=== PATIENT | female | born 1965 | race Caucasian/White ===

== ENCOUNTER 2020-04-17 15:52 | Inpatient (IN) | payer BC, MEDICAID ==
[~2020-04-17] VITALS: Ht 167.6 cm; Wt 110.0 kg
[~2020-04-17 15:52] MED LIST: ATOR20TA PO; DICL75TA5 PO; ESCI5TAB PO; INSU100I31 SQ; LISI40TA4 PO; METF1000 PO; OMEG500C PO; ROPINEROLE PO; TRAZ-256 PO; TRIA1TAB5 PO; [UNRECOGNIZED DRUG - OTHER]
[2020-04-17] MEDS ORDERED: normal saline 1000ML IV soln IVB ONE (16:25)
[2020-04-17] MEDS ORDERED: ondansetron/PF 4mg/2ml inj IV ONE (16:25)
[2020-04-17] MEDS ORDERED: metoprolol tartrate 1mg/ml inj IV ONE (16:25)
[2020-04-17 16:56] LABS: BASOPHILS # (AUTO) 0.2 X10'3 (0-0.2); BASOPHILS % (AUTO) 1.1 % (0-1); EOSINOPHILS # (AUTO) 0.1 X10'3 (0-0.9); EOSINOPHILS % (AUTO) 0.4 % (0-6); HEMATOCRIT 37.3 % (35.0-45.0); HEMOGLOBIN 12.2 g/dl (12.0-16.0); LYMPHOCYTES # (AUTO) 1.7 X10'3 (1.1-4.8); MEAN CORPUSCULAR HEMOGLOBIN 28.6 PG (27.0-31.0); MEAN CORPUSCULAR HGB CONC 32.6 g/dL (33.0-36.5); MEAN CORPUSCULAR VOLUME 87.7 FL (78-98); MEAN PLATELET VOLUME 10.1 FL (7.4-10.4); MONOCYTES # (AUTO) 0.9 X10'3 (0-0.9); MONOCYTES % (AUTO) 6.5 % (2-12); NEUTROPHILS # (AUTO) 11.1 X10'3 (1.8-7.7); PLATELET COUNT 440 X10'3 (140-440); RED BLOOD COUNT 4.26 X10'6 (4.20-5.60); RED CELL DISTRIBUTION WIDTH 16.1 % (11.5-14.5); WHITE BLOOD COUNT 13.9 X10'3 (4.5-11.0)
[2020-04-17 17:15] LABS: ALANINE AMINOTRANSFERASE 32 U/L (12-78); ALBUMIN 2.6 G/DL (3.4-5.0); ALBUMIN/GLOBULIN RATIO 0.6 (1.1-1.5); ALKALINE PHOSPHATASE 206 IU/L (46-116); ANION GAP 9 (8-16); ASPARTATE AMINO TRANSFERASE 29 U/L (10-37); BLOOD UREA NITROGEN 26 MG/DL (7-18); BUN/CREATININE RATIO 15.7 (6.6-38.0); CALCIUM 8.6 MG/DL (8.5-10.1); CHLORIDE 93 MMOL/L (99-107); CREATININE 1.66 MG/DL (0.40-0.90); GLUCOSE 197 MG/DL (70-104); POTASSIUM 4.8 MMOL/L (3.5-5.1); SODIUM 132 MMOL/L (135-145); TOTAL CARBON DIOXIDE 30.1 MMOL/L (24-32); TOTAL PROTEIN 7.2 G/DL (6.4-8.2); eGFR 32 ML/MIN
[2020-04-17] MEDS ORDERED: furosemide 10 MG/1 ML 10ml inj IV ONE (17:15)
[2020-04-17 17:17] LABS: D-DIMER 5.61 MG/L FEU (0-0.50)
[2020-04-17 17:22] LABS: MAGNESIUM 1.4 MG/DL (1.5-2.4)
[2020-04-17] MEDS ORDERED: iohexol 350MG/ML 100ml bottle IV ONE (17:29)
--- NOTE | 2020-04-17 17:57 | NUR ---
PT OUT TO CT VIA WHEELCHAIR WITH SHREDDER OPERATOR
[2020-04-17] MEDS ORDERED: diltiazem 5mg/ml 5ml inj. IV ONE (18:10)
[2020-04-17] MEDS ORDERED: diltiazem-D5W 125mg/125ml 125 ML IV SCH (18:35)
[2020-04-17] MEDS ORDERED: potassium Cl 20 mEq SR tablet PO PRN (19:20)
[2020-04-17] MEDS ORDERED: magnesium 4gm in 100ml NS 100 ML IV PRN (19:20)
[2020-04-17] MEDS ORDERED: magnesium hydroxide 30ml (MOM) UD suspension PO PRN (19:20)
[2020-04-17] MEDS ORDERED: ondansetron/PF 4mg/2ml inj IV PRN (19:20)
[2020-04-17] MEDS ORDERED: mag hydrox/Alum hydrox/simeth 30ml oral suspension PO PRN (19:20)
[2020-04-17] MEDS ORDERED: magnesium 2GM in 50ml NS 50 ML IV PRN (19:20)
[2020-04-17] MEDS ORDERED: bisacodyl 10mg suppository rectal RC PRN (19:20)
[2020-04-17] MEDS ORDERED: potassium CL 10mEq/100ml bag 100 ML IV PRN ×2 (19:20)
[2020-04-17] MEDS: diltiazem-NS 100mg/100ml 100 ML IV SCH (19:44)
[2020-04-17] MEDS ORDERED: dextrose ORAL solution 15 GM/59 ML bottle PO PRN ×2 (20:05)
[2020-04-17] MEDS ORDERED: MESSAGE TO PHARMACY PO ONE (20:05)
[2020-04-17] MEDS ORDERED: dextrose 50%-water 50ml dispensing syringe IV PRN ×2 (20:05)
[2020-04-17] MEDS ORDERED: glucagon, human recombinant 1mg kit SUBCUT PRN (20:05)
[2020-04-17] MEDS ORDERED: TRIA1TAB5 PO (20:06)
[2020-04-17] MEDS ORDERED: DULO-31 PO (20:06)
[2020-04-17] MEDS ORDERED: LANS30CA56 PO (20:06)
[2020-04-17] MEDS ORDERED: LISI-600 PO (20:06)
[2020-04-17] MEDS ORDERED: OMEG-143 PO (20:06)
[2020-04-17 20:24] LABS: HEMOGLOBIN A1C 7.7 % (4.5-6.2)
[2020-04-17 20:52] VITALS: BP 130/78
[2020-04-17 21:30] VITALS: BP 110/79
[2020-04-17 22:00] VITALS: BP 116/69
[2020-04-17] MEDS: docusate sod 100mg capsule PO SCH (22:06)
[2020-04-17] MEDS: MESSAGE TO NURSING PO NR (22:10)
[2020-04-17] MEDS: traZODone 50mg tablet PO SCH (22:15)
[2020-04-17] MEDS: insulin glargine (Lantus) pen - multi-dose SQ SCH (22:58)
[2020-04-17] MEDS: K and/or MAG REPLACEMENT MC SCH (22:58)
[2020-04-17 23:00] VITALS: BP 116/69
[2020-04-18] VITALS (17 sets, daily range): BP systolic 89–128; BP diastolic 49–85
--- NOTE | 2020-04-18 00:21 | NUR ---
3016B - Eun Griffin 55/F - Pt requesting Requip 1mg for restless leg per med pt was taking 1month ago, pt admitted for Sinus Tachy pt remains on cardizem @ 5ml/hr with HR @ 120s-150s. Do you want the rate increased? [phone] Edmund BAUTISTA
[2020-04-18] MEDS ORDERED: ROPINIRole 1mg tablet PO ONE (00:25)
[2020-04-18 05:40] LABS: BASOPHILS # (AUTO) 0.1 X10'3 (0-0.2); BASOPHILS % (AUTO) 0.8 % (0-1); EOSINOPHILS # (AUTO) 0.1 X10'3 (0-0.9); HEMATOCRIT 37.8 % (35.0-45.0); HEMOGLOBIN 12.1 g/dl (12.0-16.0); LYMPHOCYTES # (AUTO) 1.9 X10'3 (1.1-4.8); LYMPHOCYTES % (AUTO) 14.8 % (21-51); MEAN CORPUSCULAR VOLUME 87.5 FL (78-98); MEAN PLATELET VOLUME 10.2 FL (7.4-10.4); MONOCYTES % (AUTO) 7.6 % (2-12); NEUTROPHILS # (AUTO) 9.9 X10'3 (1.8-7.7); NEUTROPHILS % (AUTO) 75.8 % (42-75); PLATELET COUNT 470 X10'3 (140-440); RED BLOOD COUNT 4.32 X10'6 (4.20-5.60); RED CELL DISTRIBUTION WIDTH 15.5 % (11.5-14.5); WHITE BLOOD COUNT 13.1 X10'3 (4.5-11.0)
[2020-04-18 05:52] LABS: ALANINE AMINOTRANSFERASE 25 U/L (12-78); ALBUMIN 2.6 G/DL (3.4-5.0); ALBUMIN/GLOBULIN RATIO 0.6 (1.1-1.5); ALKALINE PHOSPHATASE 193 IU/L (46-116); ANION GAP 7 (8-16); ASPARTATE AMINO TRANSFERASE 18 U/L (10-37); BILIRUBIN,TOTAL 0.9 MG/DL (0.1-1.0); BLOOD UREA NITROGEN 28 MG/DL (7-18); BUN/CREATININE RATIO 17.5 (6.6-38.0); CALCIUM 8.8 MG/DL (8.5-10.1); CHLORIDE 96 MMOL/L (99-107); GLUCOSE 162 MG/DL (70-104); POTASSIUM 4.2 MMOL/L (3.5-5.1); SODIUM 134 MMOL/L (135-145); TOTAL CARBON DIOXIDE 30.6 MMOL/L (24-32); TOTAL PROTEIN 6.9 G/DL (6.4-8.2); eGFR 33 ML/MIN
[2020-04-18 05:56] LABS: MAGNESIUM 1.6 MG/DL (1.5-2.4)
--- NOTE | 2020-04-18 06:10 | NUR ---
Patient in room PCU 3016. I have received report from Edmund BAUTISTA and had the opportunity to ask questions and assume patient care.
--- NOTE | 2020-04-18 06:17 | NUR ---
Problems reprioritized. Patient report given, questions answered & plan of care reviewed with Stevie BAUTISTA.
[2020-04-18] MEDS: K and/or MAG REPLACEMENT MC SCH ×2 (08:00→20:00)
[2020-04-18] MEDS: DICLOFENAC SODIUM 75 MG PO SCH ×2 (08:00→20:00)
[2020-04-18] MEDS: docusate sod 100mg capsule PO SCH ×2 (08:48→20:31)
[2020-04-18] MEDS: diltiazem-NS 100mg/100ml 100 ML IV SCH ×3 (08:55→17:52)
[2020-04-18] MEDS ORDERED: pneumococcal 23-VAL P-sac vacc 25 mcg/0.5ml vial IMVAC ONE (10:00)
[2020-04-18] MEDS ORDERED: metoprolol tartrate 25mg tablet PO ONE (10:10)
[2020-04-18] MEDS: MESSAGE TO NURSING PO NR (10:33)
[2020-04-18] MEDS: acetaminophen 325mg tablet PO PRN (11:50)
[2020-04-18] MEDS ORDERED: magnesium 2GM in 50ml NS 50 ML IV ONE (12:55)
--- NOTE | 2020-04-18 13:00 | NUR ---
Per dr. Turcios; increase Cardizem gtt to 12mg/hr and continue to monitor Pt.
[2020-04-18] MEDS: furosemide 40mg/4ml inj IV SCH (13:35)
[2020-04-18] MEDS: amiodarone 200mg tablet PO SCH ×2 (13:37→20:31)
[2020-04-18] MEDS: insulin Lispro (HumaLOG) vial - multi-dose SQ SCH ×3 (14:09→18:40)
[2020-04-18] MEDS ORDERED: magnesium 4gm in 100ml NS 100 ML IV PRN (14:20)
[2020-04-18] MEDS ORDERED: potassium CL 10mEq/100ml bag 100 ML IV PRN (14:20)
[2020-04-18] MEDS ORDERED: magnesium Cl slow-release 64mg tablet PO PRN (14:20)
[2020-04-18] MEDS ORDERED: potassium Cl 20 mEq SR tablet PO PRN ×2 (14:20)
--- NOTE | 2020-04-18 14:32 | NUR ---
DM consult, A1c 7.7, patient given written DM education handout with verbal review. Addendum: 04/18/20 at [address] Amended: Links added.
[2020-04-18] MEDS: carvedilol 6.25mg tablet PO SCH ×2 (15:00→20:30)
[2020-04-18] MEDS: enoxaparin 40mg/0.4ml syringe SUBCUT SCH (16:40)
--- NOTE | 2020-04-18 17:13 | NUR ---
PAGER ID: [phone] MESSAGE: Re: Eun Griffin, Room: [facility]. Cardizem drip running at 12mg/hr. New cardiac meds being added tonight. Do you want to drop drip rate incase blood pressure decreases? -Stevie U #[id number] Dr. Babcock called concerning Pt's cardizem drip.
--- NOTE | 2020-04-18 18:00 | NUR ---
Problems reprioritized. Patient report given, questions answered & plan of care reviewed with Mata RN.
--- NOTE | 2020-04-18 18:30 | NUR ---
Patient in room PCU 3014. I have received report from Stevie BAUTISTA and had the opportunity to ask questions and assume patient care.
[2020-04-18] MEDS: atorvastatin 20mg tablet PO SCH (20:28)
[2020-04-18] MEDS: traZODone 50mg tablet PO SCH (20:29)
[2020-04-18] MEDS: duloxetine 30mg CAPSULE.DR PO SCH (20:29)
[2020-04-18] MEDS ORDERED: lisinopril 20mg tablet PO SCH (21:00)
[2020-04-18] MEDS ORDERED: triamterene/HCTZ 37.5/25mg tablet PO SCH (21:00)
[2020-04-18] MEDS: insulin glargine (Lantus) pen - multi-dose SQ SCH (21:23)
[2020-04-19] VITALS (13 sets, daily range): BP systolic 95–126; BP diastolic 6–97
--- NOTE | 2020-04-19 00:53 | NUR ---
NOTIFIED PAGER ID: [phone] MESSAGE: Eun Griffin, 3014A- pt can't sleep, can she get an order for melatonin? thank you
[2020-04-19] MEDS: diltiazem-NS 100mg/100ml 100 ML IV SCH (01:48)
--- NOTE | 2020-04-19 06:00 | NUR ---
Problems reprioritized. Patient report given, questions answered & plan of care reviewed with Stevie BAUTISTA.
--- NOTE | 2020-04-19 06:15 | NUR ---
Patient in room PCU 3014. I have received report from Bruce BAUTISTA and had the opportunity to ask questions and assume patient care.
[2020-04-19 06:25] LABS: BASOPHILS # (AUTO) 0.1 X10'3 (0-0.2); BASOPHILS % (AUTO) 0.9 % (0-1); EOSINOPHILS # (AUTO) 0.2 X10'3 (0-0.9); EOSINOPHILS % (AUTO) 1.4 % (0-6); HEMATOCRIT 34.6 % (35.0-45.0); HEMOGLOBIN 11.5 g/dl (12.0-16.0); LYMPHOCYTES # (AUTO) 1.6 X10'3 (1.1-4.8); LYMPHOCYTES % (AUTO) 12.5 % (21-51); MEAN CORPUSCULAR HEMOGLOBIN 28.9 PG (27.0-31.0); MEAN CORPUSCULAR HGB CONC 33.2 g/dL (33.0-36.5); MEAN CORPUSCULAR VOLUME 87.1 FL (78-98); MEAN PLATELET VOLUME 9.9 FL (7.4-10.4); MONOCYTES # (AUTO) 0.9 X10'3 (0-0.9); MONOCYTES % (AUTO) 6.7 % (2-12); NEUTROPHILS # (AUTO) 10.1 X10'3 (1.8-7.7); NEUTROPHILS % (AUTO) 78.5 % (42-75); PLATELET COUNT 428 X10'3 (140-440); RED BLOOD COUNT 3.97 X10'6 (4.20-5.60); RED CELL DISTRIBUTION WIDTH 15.8 % (11.5-14.5); WHITE BLOOD COUNT 12.8 X10'3 (4.5-11.0)
[2020-04-19 06:53] LABS: ALANINE AMINOTRANSFERASE 23 U/L (12-78); ALBUMIN 2.5 G/DL (3.4-5.0); ALBUMIN/GLOBULIN RATIO 0.6 (1.1-1.5); ALKALINE PHOSPHATASE 169 IU/L (46-116); ANION GAP 11 (8-16); ASPARTATE AMINO TRANSFERASE 17 U/L (10-37); BILIRUBIN,TOTAL 0.9 MG/DL (0.1-1.0); BLOOD UREA NITROGEN 32 MG/DL (7-18); BUN/CREATININE RATIO 20.1 (6.6-38.0); CALCIUM 8.4 MG/DL (8.5-10.1); CHLORIDE 94 MMOL/L (99-107); CREATININE 1.59 MG/DL (0.40-0.90); GLUCOSE 84 MG/DL (70-104); MAGNESIUM 1.8 MG/DL (1.5-2.4); POTASSIUM 3.8 MMOL/L (3.5-5.1); SODIUM 132 MMOL/L (135-145); TOTAL CARBON DIOXIDE 27.3 MMOL/L (24-32); TOTAL PROTEIN 6.9 G/DL (6.4-8.2); eGFR 33 ML/MIN
[2020-04-19] MEDS: furosemide 40mg/4ml inj IV SCH (07:53)
[2020-04-19] MEDS: carvedilol 6.25mg tablet PO SCH (07:53)
[2020-04-19] MEDS: potassium Cl 20 mEq SR tablet PO SCH (07:54)
[2020-04-19] MEDS: docusate sod 100mg capsule PO SCH ×2 (07:54→19:03)
[2020-04-19] MEDS: magnesium Cl slow-release 64mg tablet PO PRN ×2 (07:54→17:23)
[2020-04-19] MEDS: amiodarone 200mg tablet PO SCH ×2 (07:54→19:03)
[2020-04-19] MEDS: enoxaparin 40mg/0.4ml syringe SUBCUT SCH (08:00)
[2020-04-19] MEDS: apixaban 2.5mg tablet PO SCH ×2 (08:00→19:03)
[2020-04-19] MEDS: DICLOFENAC SODIUM 75 MG PO SCH ×2 (08:00→19:03)
[2020-04-19] MEDS: K and/or MAG REPLACEMENT MC SCH ×2 (08:43→20:00)
[2020-04-19] MEDS ORDERED: diltiazem 30mg tablet PO ONE (09:00)
[2020-04-19] MEDS: insulin Lispro (HumaLOG) vial - multi-dose SQ SCH ×3 (09:15→18:59)
--- NOTE | 2020-04-19 09:50 | NUR ---
Per Dr. Lopez; Give Cardizem 30mg PO q6hrs. Turn Cardizem drip off half hour after PO administered.
[2020-04-19] MEDS: pantoprazole 40mg Tablet.DR PO SCH (10:03)
[2020-04-19] MEDS: MESSAGE TO NURSING PO NR (10:23)
--- NOTE | 2020-04-19 10:30 | NUR ---
Cardizem drip turned off at 1025 after Cardizem PO 30mg given.
[2020-04-19] MEDS ORDERED: lisinopril 10 MG tablet PO SCH (12:00)
[2020-04-19] MEDS: lisinopril 10 MG tablet PO SCH (12:53)
[2020-04-19] MEDS ORDERED: diltiazem 30mg tablet PO SCH (14:00)
--- NOTE | 2020-04-19 17:11 | NUR ---
PAGER ID: [phone] MESSAGE: Re: Eun Griffin, room: [facility]. Pt's heart rate steady in 110's. BP 120/73. Do you want to increase Cardizem to 60mg q6hrs? -Stevie U #[id number] Dr. Lopez paged concerning Pt's heart rate.
[2020-04-19] MEDS: potassium Cl 20 mEq SR tablet PO PRN ×2 (17:24→21:38)
--- NOTE | 2020-04-19 18:05 | NUR ---
Problems reprioritized. Patient report given, questions answered & plan of care reviewed with Monica BAUTISTA.
--- NOTE | 2020-04-19 18:21 | NUR ---
PAGER ID: [phone] MESSAGE: Eun Griffin [id number]: Patient is reporting some shortness of breath. States she takes an albuterol inhaler at home. No current RT orders. -Monica BAUTISTA [phone]
--- NOTE | 2020-04-19 18:25 | NUR ---
Patient in room PCU 3014. I have received report from Stevie BAUTISTA and had the opportunity to ask questions and assume patient care.
[2020-04-19] MEDS: diltiazem 30mg tablet PO SCH (19:02)
[2020-04-19] MEDS: carVEDilol 12.5mg tablet PO SCH (19:03)
[2020-04-19] MEDS: atorvastatin 20mg tablet PO SCH (20:12)
[2020-04-19] MEDS: duloxetine 30mg CAPSULE.DR PO SCH (20:12)
[2020-04-19] MEDS: ROPINIRole 1mg tablet PO SCH (20:12)
[2020-04-19] MEDS: traZODone 50mg tablet PO SCH (20:12)
[2020-04-19] MEDS ORDERED: albuterol 2.5 MG/3 ML nebule NEB PRN (21:05)
--- NOTE | 2020-04-19 21:21 | NUR ---
PAGER ID: [phone] MESSAGE: Eun Griffin [id number]: Patient reporting back pain. She does not have anything ordered. -Monica BAUTISTA [id number]
[2020-04-19] MEDS: insulin glargine (Lantus) pen - multi-dose SQ SCH (21:37)
[2020-04-19] MEDS: traMADol 50MG tablet PO PRN (21:38)
[2020-04-20] VITALS (7 sets, daily range): BP systolic 93–152; BP diastolic 49–75
[2020-04-20] MEDS: diltiazem 30mg tablet PO SCH ×4 (01:58→22:30)
[2020-04-20 06:06] LABS: BASOPHILS # (AUTO) 0.1 X10'3 (0-0.2); BASOPHILS % (AUTO) 0.6 % (0-1); EOSINOPHILS % (AUTO) 0.3 % (0-6); HEMATOCRIT 35.9 % (35.0-45.0); HEMOGLOBIN 11.6 g/dl (12.0-16.0); LYMPHOCYTES # (AUTO) 1.2 X10'3 (1.1-4.8); MEAN CORPUSCULAR HGB CONC 32.4 g/dL (33.0-36.5); MEAN CORPUSCULAR VOLUME 86.3 FL (78-98); MEAN PLATELET VOLUME 9.9 FL (7.4-10.4); MONOCYTES # (AUTO) 0.6 X10'3 (0-0.9); MONOCYTES % (AUTO) 4.5 % (2-12); NEUTROPHILS # (AUTO) 10.3 X10'3 (1.8-7.7); NEUTROPHILS % (AUTO) 84.6 % (42-75); PLATELET COUNT 456 X10'3 (140-440); RED BLOOD COUNT 4.16 X10'6 (4.20-5.60); RED CELL DISTRIBUTION WIDTH 16.3 % (11.5-14.5); WHITE BLOOD COUNT 12.2 X10'3 (4.5-11.0)
--- NOTE | 2020-04-20 06:20 | NUR ---
Problems reprioritized. Patient report given, questions answered & plan of care reviewed with Zulema BAUTISTA.
[2020-04-20 06:25] LABS: ALANINE AMINOTRANSFERASE 24 U/L (12-78); ALBUMIN 2.4 G/DL (3.4-5.0); ALBUMIN/GLOBULIN RATIO 0.6 (1.1-1.5); ALKALINE PHOSPHATASE 156 IU/L (46-116); ANION GAP 10 (8-16); ASPARTATE AMINO TRANSFERASE 15 U/L (10-37); BILIRUBIN,TOTAL 1.1 MG/DL (0.1-1.0); BLOOD UREA NITROGEN 39 MG/DL (7-18); BUN/CREATININE RATIO 20.3 (6.6-38.0); CALCIUM 8.8 MG/DL (8.5-10.1); CHLORIDE 92 MMOL/L (99-107); CREATININE 1.92 MG/DL (0.40-0.90); GLUCOSE 112 MG/DL (70-104); MAGNESIUM 1.9 MG/DL (1.5-2.4); POTASSIUM 5.3 MMOL/L (3.5-5.1); SODIUM 128 MMOL/L (135-145); TOTAL CARBON DIOXIDE 26.4 MMOL/L (24-32); TOTAL PROTEIN 6.7 G/DL (6.4-8.2); eGFR 27 ML/MIN
--- NOTE | 2020-04-20 06:39 | NUR ---
Patient in room PCU 3014. I have received report from Monica BAUTISTA and had the opportunity to ask questions and assume patient care.
[2020-04-20] MEDS: DICLOFENAC SODIUM 75 MG PO SCH ×2 (08:00→22:32)
[2020-04-20] MEDS: potassium Cl 20 mEq SR tablet PO SCH (08:00)
[2020-04-20] MEDS: K and/or MAG REPLACEMENT MC SCH ×2 (08:00→20:00)
[2020-04-20] MEDS: carVEDilol 12.5mg tablet PO SCH ×2 (09:01→22:32)
[2020-04-20] MEDS: amiodarone 200mg tablet PO SCH ×2 (09:01→22:31)
[2020-04-20] MEDS: furosemide 40mg/4ml inj IV SCH (09:01)
[2020-04-20] MEDS: docusate sod 100mg capsule PO SCH ×2 (09:01→22:31)
[2020-04-20] MEDS ORDERED: digoxin 250mcg/ml 2ml ampule IV ONE ×3 (09:30→15:30)
[2020-04-20] MEDS: pantoprazole 40mg Tablet.DR PO SCH (09:59)
[2020-04-20] MEDS: lisinopril 10 MG tablet PO SCH (12:00)
--- NOTE | 2020-04-20 18:44 | NUR ---
Problems reprioritized. Patient report given, questions answered & plan of care reviewed with Silvana BAUTISTA.
[2020-04-20] MEDS: insulin glargine (Lantus) pen - multi-dose SQ SCH (21:00)
[2020-04-20] MEDS: traZODone 50mg tablet PO SCH (22:30)
[2020-04-20] MEDS: duloxetine 30mg CAPSULE.DR PO SCH (22:31)
[2020-04-20] MEDS: ROPINIRole 1mg tablet PO SCH (22:31)
[2020-04-20] MEDS: atorvastatin 20mg tablet PO SCH (22:31)
[2020-04-20] MEDS: apixaban 5mg tablet PO SCH (22:32)
[2020-04-21] MEDS: traMADol 50MG tablet PO PRN ×2 (02:32→11:32)
[2020-04-21] MEDS: diltiazem 30mg tablet PO SCH ×3 (02:32→14:00)
[2020-04-21 03:00] VITALS: BP 102/53
[2020-04-21] MEDS: acetaminophen 325mg tablet PO PRN (04:19)
[2020-04-21 06:34] LABS: BASOPHILS # (AUTO) 0.1 X10'3 (0-0.2); BASOPHILS % (AUTO) 0.8 % (0-1); EOSINOPHILS # (AUTO) 0.2 X10'3 (0-0.9); EOSINOPHILS % (AUTO) 1.5 % (0-6); HEMATOCRIT 34.1 % (35.0-45.0); HEMOGLOBIN 11.3 g/dl (12.0-16.0); LYMPHOCYTES # (AUTO) 1.3 X10'3 (1.1-4.8); LYMPHOCYTES % (AUTO) 12.2 % (21-51); MEAN CORPUSCULAR HEMOGLOBIN 28.7 PG (27.0-31.0); MEAN CORPUSCULAR HGB CONC 33.3 g/dL (33.0-36.5); MEAN CORPUSCULAR VOLUME 86.3 FL (78-98); MEAN PLATELET VOLUME 9.8 FL (7.4-10.4); MONOCYTES % (AUTO) 9.1 % (2-12); NEUTROPHILS # (AUTO) 8.3 X10'3 (1.8-7.7); NEUTROPHILS % (AUTO) 76.4 % (42-75); PLATELET COUNT 465 X10'3 (140-440); RED BLOOD COUNT 3.95 X10'6 (4.20-5.60); RED CELL DISTRIBUTION WIDTH 16.1 % (11.5-14.5); WHITE BLOOD COUNT 10.9 X10'3 (4.5-11.0)
--- NOTE | 2020-04-21 06:34 | NUR ---
Patient in room [place] [id number]. I have received report from and had the opportunity to ask questions and assume patient care. Addendum: 04/21/20 at 0635 by Ariadne Dukes RN Patient in room [place] [address]. I have received report from Silvana BAUTISTA and had the opportunity to ask questions and assume patient care. Patient stable upon bedside report. All current needs met
--- NOTE | 2020-04-21 06:35 | NUR ---
Patient in room PCU 3014. I have received report from Silvana BAUTISTA and had the opportunity to ask questions and assume patient care. Patient awake and oriented, offers no complaints, patient on mobile monitor, will continue to monitor.
[2020-04-21 06:49] LABS: ALANINE AMINOTRANSFERASE 18 U/L (12-78); ALBUMIN 2.3 G/DL (3.4-5.0); ALBUMIN/GLOBULIN RATIO 0.6 (1.1-1.5); ALKALINE PHOSPHATASE 135 IU/L (46-116); ANION GAP 6 (8-16); ASPARTATE AMINO TRANSFERASE 14 U/L (10-37); BILIRUBIN,TOTAL 1.1 MG/DL (0.1-1.0); BLOOD UREA NITROGEN 42 MG/DL (7-18); BUN/CREATININE RATIO 22.5 (6.6-38.0); CALCIUM 8.8 MG/DL (8.5-10.1); CHLORIDE 91 MMOL/L (99-107); CREATININE 1.87 MG/DL (0.40-0.90); GLUCOSE 139 MG/DL (70-104); MAGNESIUM 1.9 MG/DL (1.5-2.4); POTASSIUM 4.7 MMOL/L (3.5-5.1); SODIUM 127 MMOL/L (135-145); TOTAL CARBON DIOXIDE 30.2 MMOL/L (24-32); TOTAL PROTEIN 6.3 G/DL (6.4-8.2); eGFR 28 ML/MIN
[2020-04-21 07:00] VITALS: BP 99/53
[2020-04-21] MEDS: K and/or MAG REPLACEMENT MC SCH ×2 (08:00→19:27)
[2020-04-21] MEDS: potassium Cl 20 mEq SR tablet PO SCH (08:04)
[2020-04-21] MEDS: docusate sod 100mg capsule PO SCH ×2 (08:05→20:27)
[2020-04-21] MEDS: pantoprazole 40mg Tablet.DR PO SCH (08:05)
[2020-04-21] MEDS: apixaban 5mg tablet PO SCH ×2 (08:06→20:27)
[2020-04-21] MEDS: carVEDilol 12.5mg tablet PO SCH (08:06)
[2020-04-21] MEDS: amiodarone 200mg tablet PO SCH ×2 (08:07→20:27)
[2020-04-21] MEDS: furosemide 40mg/4ml inj IV SCH (08:07)
[2020-04-21] MEDS: DICLOFENAC SODIUM 75 MG PO SCH ×2 (08:07→20:27)
[2020-04-21] MEDS ORDERED: potassium CL 10mEq/100ml bag 100 ML IV PRN (08:55)
[2020-04-21] MEDS ORDERED: magnesium 4gm in 100ml NS 100 ML IV PRN (08:55)
[2020-04-21] MEDS ORDERED: potassium Cl 20 mEq SR tablet PO PRN ×2 (08:55)
[2020-04-21] MEDS: insulin Lispro (HumaLOG) vial - multi-dose SQ SCH ×3 (09:34→19:01)
[2020-04-21] MEDS: magnesium Cl slow-release 64mg tablet PO PRN ×2 (09:35→20:28)
[2020-04-21] MEDS ORDERED: furosemide 40mg/4ml inj IV ONE (10:50)
--- NOTE | 2020-04-21 10:52 | NUR ---
Spoke with Dr. Lopez at patient bedside, took verbal order for additional one time dose of 40 mg of lasix. Today patient will receive lasix TID in hopes to reduce edema prior to discharge tomorrow.
[2020-04-21 11:00] VITALS: BP 89/45
[2020-04-21] MEDS: lisinopril 10 MG tablet PO SCH (12:00)
--- NOTE | 2020-04-21 12:24 | NUR ---
PAGER ID: [phone] MESSAGE: [id number] Eun Griffin, BP 99/58. Do you want to still give dose of Lasix and lisinopril with current BP?
--- NOTE | 2020-04-21 12:52 | NUR ---
Spoke with Dr. Lopez, instructed to give the lasix that was ordered with the BP of 99/58. Will continue to monitor.
--- NOTE | 2020-04-21 13:05 | NUR ---
PAGER ID: [phone] MESSAGE: [id number] BRUNO Early patient HR is 48. Patient states she feels SOB and foggy. Ariadne BAUTISTA [phone]
[2020-04-21] MEDS ORDERED: ondansetron 4mg rapidly disintigrating tab PO PRN (14:20)
[2020-04-21 15:00] VITALS: BP 98/50
--- NOTE | 2020-04-21 16:49 | NUR ---
Spoke with Dr. Turcios, new order obtained to stop cardizem. Will continue to monitor.
[2020-04-21 18:00] VITALS: BP 104/61
--- NOTE | 2020-04-21 18:19 | NUR ---
Problems reprioritized. Patient report given to Stefanie BAUTISTA, questions answered & plan of care reviewed. Patient stable and eating dinner upon transfer of care. all current needs met. bedside report given patient denies concerns or complaints
--- NOTE | 2020-04-21 18:19 | NUR ---
Problems reprioritized. Patient report given, questions answered & plan of care reviewed with Stefanie BAUTISTA. Patietn stable at transfer of care, Patientup at bedside chair finishing dinner, bedside report complete.
--- NOTE | 2020-04-21 19:21 | NUR ---
Patient in room PCU 3014. I have received report from Alicia BAUTISTA and Ariadne BAUTISTA and had the opportunity to ask questions and assume patient care.
[2020-04-21] MEDS: traZODone 50mg tablet PO SCH (20:25)
[2020-04-21] MEDS: carvedilol 6.25mg tablet PO SCH (20:26)
[2020-04-21] MEDS: atorvastatin 20mg tablet PO SCH (20:27)
[2020-04-21] MEDS: ROPINIRole 1mg tablet PO SCH (20:27)
[2020-04-21] MEDS: duloxetine 30mg CAPSULE.DR PO SCH (20:27)
[2020-04-21 22:00] VITALS: BP 127/58
[2020-04-21] MEDS: insulin glargine (Lantus) pen - multi-dose SQ SCH (22:00)
--- NOTE | 2020-04-21 22:01 | NUR ---
BP 127/58 and HR 101 after first 6.25mg dose of Coreg so now additional 12.5mg given now for a total dose of 18.75mg.
[2020-04-22 02:00] VITALS: BP 125/72
[2020-04-22 05:13] LABS: BASOPHILS # (AUTO) 0.1 X10'3 (0-0.2); BASOPHILS % (AUTO) 0.7 % (0-1); EOSINOPHILS # (AUTO) 0.1 X10'3 (0-0.9); EOSINOPHILS % (AUTO) 0.9 % (0-6); HEMATOCRIT 37.7 % (35.0-45.0); HEMOGLOBIN 12.3 g/dl (12.0-16.0); LYMPHOCYTES # (AUTO) 0.9 X10'3 (1.1-4.8); LYMPHOCYTES % (AUTO) 8.2 % (21-51); MEAN CORPUSCULAR HEMOGLOBIN 28.3 PG (27.0-31.0); MEAN CORPUSCULAR HGB CONC 32.7 g/dL (33.0-36.5); MEAN CORPUSCULAR VOLUME 86.5 FL (78-98); MEAN PLATELET VOLUME 9.7 FL (7.4-10.4); MONOCYTES # (AUTO) 0.9 X10'3 (0-0.9); NEUTROPHILS # (AUTO) 9.3 X10'3 (1.8-7.7); NEUTROPHILS % (AUTO) 82.2 % (42-75); PLATELET COUNT 402 X10'3 (140-440); RED BLOOD COUNT 4.35 X10'6 (4.20-5.60); WHITE BLOOD COUNT 11.3 X10'3 (4.5-11.0)
[2020-04-22 05:49] LABS: ALANINE AMINOTRANSFERASE 19 U/L (12-78); ALBUMIN 2.4 G/DL (3.4-5.0); ALBUMIN/GLOBULIN RATIO 0.6 (1.1-1.5); ALKALINE PHOSPHATASE 131 IU/L (46-116); ANION GAP 8 (8-16); ASPARTATE AMINO TRANSFERASE 14 U/L (10-37); BILIRUBIN,TOTAL 1.3 MG/DL (0.1-1.0); BLOOD UREA NITROGEN 50 MG/DL (7-18); BUN/CREATININE RATIO 24.9 (6.6-38.0); CALCIUM 8.6 MG/DL (8.5-10.1); CHLORIDE 91 MMOL/L (99-107); CREATININE 2.01 MG/DL (0.40-0.90); GLUCOSE 89 MG/DL (70-104); MAGNESIUM 1.7 MG/DL (1.5-2.4); POTASSIUM 4.2 MMOL/L (3.5-5.1); SODIUM 128 MMOL/L (135-145); TOTAL CARBON DIOXIDE 28.7 MMOL/L (24-32); TOTAL PROTEIN 6.7 G/DL (6.4-8.2); eGFR 26 ML/MIN
--- NOTE | 2020-04-22 06:13 | NUR ---
Problems reprioritized. Patient report given, questions answered & plan of care reviewed with Alicia BAUTISTA and Ariadne BAUTISTA.
--- NOTE | 2020-04-22 06:27 | NUR ---
Patient in room PCU 3014. I have received report from Stefanie BAUTISTA and had the opportunity to ask questions and assume patient care. Patient stable upon transfer of care. all current needs met
--- NOTE | 2020-04-22 06:33 | NUR ---
Patient in room PCU 3014. I have received report from Stefanie BAUTISTA and had the opportunity to ask questions and assume patient care. Patient is awake and oriented at this time, sitting at bedside chair. Patient only c/o pain, will check on medications available and continue to monitor.
[2020-04-22 07:00] VITALS: BP 95/74
[2020-04-22] MEDS: pantoprazole 40mg Tablet.DR PO SCH (07:30)
[2020-04-22] MEDS: traMADol 50MG tablet PO PRN ×2 (07:40→12:52)
[2020-04-22] MEDS: apixaban 5mg tablet PO SCH (08:00)
[2020-04-22] MEDS: docusate sod 100mg capsule PO SCH (08:51)
[2020-04-22] MEDS: magnesium Cl slow-release 64mg tablet PO PRN (08:52)
[2020-04-22] MEDS: potassium Cl 20 mEq SR tablet PO SCH (08:52)
[2020-04-22] MEDS: amiodarone 200mg tablet PO SCH (08:52)
[2020-04-22] MEDS: DICLOFENAC SODIUM 75 MG PO SCH (08:53)
[2020-04-22] MEDS: furosemide 40mg/4ml inj IV SCH (08:54)
[2020-04-22] MEDS: carvedilol 6.25mg tablet PO SCH (08:54)
[2020-04-22] MEDS: K and/or MAG REPLACEMENT MC SCH (09:00)
[2020-04-22] MEDS ORDERED: digoxin 250mcg/ml 2ml ampule IV ONE ×2 (09:40→16:00)
[2020-04-22] MEDS ORDERED: FURO40TA4 PO (10:04)
[2020-04-22] MEDS ORDERED: APIX5TAB3 PO (10:04)
[2020-04-22] MEDS ORDERED: CARV6.253 PO (10:04)
[2020-04-22] MEDS ORDERED: ROPI1TAB6 PO (10:04)
[2020-04-22] MEDS ORDERED: LAN0.125T PO (10:04)
[2020-04-22] MEDS: insulin Lispro (HumaLOG) vial - multi-dose SQ SCH ×2 (10:41→13:20)
[2020-04-22 11:00] VITALS: BP 116/63
--- NOTE | 2020-04-22 11:04 | NUR ---
O2 Sat at rest on room air:92% If below 89%: Recovery O2 Sat at rest on ___LPM:___%:___% via (mask/nasal cannula, etc..) No further documentation is necessary. If O2 Sat did not drop below 89% on room air,ambulate patient on room air. O2 Sat while ambulating on room air:87% Recovery O2 Sat while ambulating on 2 LPM: 96% No further documentation is necessary. If patient does not drop below 89% while ambulating, he/she does not qualify for home O2.
[2020-04-22] MEDS: lisinopril 10 MG tablet PO SCH (12:00)
[2020-04-22 15:00] VITALS: BP 101/55
[2020-04-22] MEDS ORDERED: AMIO200T61 PO (15:46)
--- NOTE | 2020-04-22 16:12 | NUR ---
PAGER ID: [phone] MESSAGE: [id number] Eun Griffin, patient has never had home insulin can't continue the insulin per the D/C instructions. She has only been on oral diabetic medication (Glucophage and Triameterene) Please clarify discharge meds so pt can D/C. Mayte [phone]
--- NOTE | 2020-04-22 17:33 | NUR ---
Patient is stable for discharge per MD order. all discharge instructions reviewed with patient and all questions answered. New prescriptions called into [facility] pharmacy. Diabetic medications clarified with Dr. Lopez. Patient home meds retrieved from pharmacy. PIV discontinued with catheter intact and site bleeding controlled. cloth boil off machine operator discontinued and telephone exchange operator notified. Belongings collected and placed in patient belonging bag. Patient went home with portable oxygen unit and four wheel walker. Wheeled down to lobby and picked up by friend in personal car to be transported home.
--- NOTE | 2020-04-22 17:38 | NUR ---
Orientee documentation: I have reviewed and agree with interventions, assessments performed and documented by Ariadne BAUTISTA. Orientee Medication Administration: For this medication-pass time frame, medication were reviewed, dispensed, administered and documented per hospital policy by Ariadne BAUTISTA.
[2020-04-23] MEDS ORDERED: digoxin 125mcg (0.125mg) tablet PO SCH (08:00)
== END 2020-04-22 17:17 | disposition home health service (06) | DRG 291 ==
LOC: ER 15:52 → ED HOLD 19:19 → PCU 3S 20:41
PROVIDERS: ADMIT Family Medicine; ATTEND Internal Medicine
PROC: B32T1ZZ Computerized Tomography (CT Scan) of Left Pulmonary Artery using Low Osmolar Contrast (ICD-10-PCS; 2020-04-17)
PROC: B3201ZZ Computerized Tomography (CT Scan) of Thoracic Aorta using Low Osmolar Contrast (ICD-10-PCS; 2020-04-17)
PROC: B32S1ZZ Computerized Tomography (CT Scan) of Right Pulmonary Artery using Low Osmolar Contrast (ICD-10-PCS; 2020-04-17)
PROC: 3E0234Z Introduction of Serum, Toxoid and Vaccine into Muscle, Percutaneous Approach (ICD-10-PCS; principal; 2020-04-18)
DX: I13.0 Hypertensive heart and chronic kidney disease with heart failure and stage 1 through stage 4 chronic kidney disease, or unspecified chronic kidney disease (principal); I50.23 Acute on chronic systolic (congestive) heart failure; I48.92 Unspecified atrial flutter; N17.9 Acute kidney failure, unspecified; F12.90 Cannabis use, unspecified, uncomplicated; F17.200 Nicotine dependence, unspecified, uncomplicated; E11.22 Type 2 diabetes mellitus with diabetic chronic kidney disease; N18.3 Chronic kidney disease, stage 3 (moderate); E66.01 Morbid (severe) obesity due to excess calories; F41.9 Anxiety disorder, unspecified; M54.9 Dorsalgia, unspecified; R00.0 Tachycardia, unspecified; R00.1 Bradycardia, unspecified; Z79.4 Long term (current) use of insulin; Z79.899 Other long term (current) drug therapy; Z79.01 Long term (current) use of anticoagulants; Z23 Encounter for immunization; Z68.39 Body mass index [BMI] 39.0-39.9, adult; Z88.2 Allergy status to sulfonamides; Z88.5 Allergy status to narcotic agent
CPT/HCPCS: 36415; 71045; 71275; 76604; 76937; 80053; 80162; 82948; 83036; 83735; 83880; 84443; 84484; 85025; 85379; 87081; 93005; 93306; 94667; 94760; 97110; 97116; 97161; 97162; 97530; 97535; 99291; G0378; J1160; J1650; J1815; J1940; J3475; J3490; J7030; Q9967

== ENCOUNTER 2020-04-25 14:41 | Emergency (ER) | payer BC ==
[~2020-04-25] VITALS: Ht 168.9 cm; Wt 109.6 kg
[~2020-04-25 14:41] MED LIST changes: +AMIO200T61 PO; +APIX5TAB3 PO; +CARV6.253 PO; +DULO-31 PO; -ESCI5TAB PO; +FURO40TA4 PO; +LAN0.125T PO; +LANS30CA56 PO; -LISI40TA4 PO; -METF1000 PO; +OMEG-143 PO; -OMEG500C PO; +ROPI1TAB6 PO; -ROPINEROLE PO; -TRIA1TAB5 PO; -[UNRECOGNIZED DRUG - OTHER]
[2020-04-25 15:53] LABS: BASOPHILS # (AUTO) 0.1 X10'3 (0-0.2); BASOPHILS % (AUTO) 1.1 % (0-1); EOSINOPHILS # (AUTO) 0.2 X10'3 (0-0.9); EOSINOPHILS % (AUTO) 3.1 % (0-6); HEMATOCRIT 36.8 % (35.0-45.0); HEMOGLOBIN 12.2 g/dl (12.0-16.0); LYMPHOCYTES # (AUTO) 1.6 X10'3 (1.1-4.8); LYMPHOCYTES % (AUTO) 27.9 % (21-51); MEAN CORPUSCULAR HEMOGLOBIN 28.2 PG (27.0-31.0); MEAN CORPUSCULAR HGB CONC 33.2 g/dL (33.0-36.5); MEAN PLATELET VOLUME 8.9 FL (7.4-10.4); MONOCYTES # (AUTO) 0.4 X10'3 (0-0.9); MONOCYTES % (AUTO) 7.8 % (2-12); NEUTROPHILS # (AUTO) 3.3 X10'3 (1.8-7.7); NEUTROPHILS % (AUTO) 60.1 % (42-75); PLATELET COUNT 361 X10'3 (140-440); RED BLOOD COUNT 4.33 X10'6 (4.20-5.60); RED CELL DISTRIBUTION WIDTH 16.6 % (11.5-14.5); WHITE BLOOD COUNT 5.6 X10'3 (4.5-11.0)
[2020-04-25 16:24] LABS: ALANINE AMINOTRANSFERASE 21 U/L (12-78); ALBUMIN 2.6 G/DL (3.4-5.0); ALBUMIN/GLOBULIN RATIO 0.6 (1.1-1.5); ALKALINE PHOSPHATASE 108 IU/L (46-116); ANION GAP 3 (8-16); ASPARTATE AMINO TRANSFERASE 18 U/L (10-37); BILIRUBIN,TOTAL 0.8 MG/DL (0.1-1.0); BLOOD UREA NITROGEN 30 MG/DL (7-18); BUN/CREATININE RATIO 23.6 (6.6-38.0); CALCIUM 8.5 MG/DL (8.5-10.1); CHLORIDE 92 MMOL/L (99-107); CREATININE 1.27 MG/DL (0.40-0.90); GLUCOSE 110 MG/DL (70-104); MAGNESIUM 1.2 MG/DL (1.5-2.4); POTASSIUM 3.7 MMOL/L (3.5-5.1); SODIUM 133 MMOL/L (135-145); TOTAL CARBON DIOXIDE 38.1 MMOL/L (24-32); TOTAL PROTEIN 6.8 G/DL (6.4-8.2); eGFR 43 ML/MIN
[2020-04-25] MEDS ORDERED: furosemide 10 MG/1 ML 10ml inj IV ONE (17:00)
[2020-04-25 17:31] VITALS: BP 156/88
== END 2020-04-25 18:12 | disposition home or self-care (01) ==
LOC: ER 14:42
DX: I11.0 Hypertensive heart disease with heart failure (principal); I50.23 Acute on chronic systolic (congestive) heart failure; R60.0 Localized edema; R06.02 Shortness of breath; I48.91 Unspecified atrial fibrillation; E11.9 Type 2 diabetes mellitus without complications; F41.9 Anxiety disorder, unspecified; F12.90 Cannabis use, unspecified, uncomplicated; Z88.2 Allergy status to sulfonamides; Z88.5 Allergy status to narcotic agent; Z88.1 Allergy status to other antibiotic agents; Z79.899 Other long term (current) drug therapy
CPT/HCPCS: 36415; 71045; 80053; 83735; 83880; 84484; 85025; 93005; 96374; 99285; J1940

== ENCOUNTER 2020-05-27 10:58 | Outpatient (CLI) | payer BC ==
[~2020-05-27 10:58] MED LIST changes: -FURO40TA4 PO
[2020-05-27 12:40] LABS: BASOPHILS # (AUTO) 0.1 X10'3 (0-0.2); BASOPHILS % (AUTO) 0.7 % (0-1); EOSINOPHILS # (AUTO) 0.4 X10'3 (0-0.9); EOSINOPHILS % (AUTO) 3.2 % (0-6); HEMATOCRIT 36.6 % (35.0-45.0); HEMOGLOBIN 12.2 g/dl (12.0-16.0); LYMPHOCYTES # (AUTO) 1.2 X10'3 (1.1-4.8); LYMPHOCYTES % (AUTO) 10.5 % (21-51); MEAN CORPUSCULAR HGB CONC 33.4 g/dL (33.0-36.5); MEAN PLATELET VOLUME 9.7 FL (7.4-10.4); MONOCYTES # (AUTO) 0.5 X10'3 (0-0.9); MONOCYTES % (AUTO) 4.4 % (2-12); NEUTROPHILS # (AUTO) 9.1 X10'3 (1.8-7.7); NEUTROPHILS % (AUTO) 81.2 % (42-75); PLATELET COUNT 229 X10'3 (140-440); RED BLOOD COUNT 4.52 X10'6 (4.20-5.60); RED CELL DISTRIBUTION WIDTH 17.8 % (11.5-14.5); WHITE BLOOD COUNT 11.3 X10'3 (4.5-11.0)
[2020-05-27 12:51] LABS: ALBUMIN 3.5 G/DL (3.4-5.0); ANION GAP 5 (8-16); BLOOD UREA NITROGEN 34 MG/DL (7-18); BUN/CREATININE RATIO 26.8 (6.6-38.0); CALCIUM 8.7 MG/DL (8.5-10.1); CHLORIDE 82 MMOL/L (99-107); CREATININE 1.27 MG/DL (0.40-0.90); GLUCOSE 141 MG/DL (70-104); POTASSIUM 3.5 MMOL/L (3.5-5.1); SODIUM 122 MMOL/L (135-145); TOTAL CARBON DIOXIDE 34.7 MMOL/L (24-32); eGFR 43 ML/MIN
[2020-05-28] MEDS ORDERED: APIX5TAB3 PO (08:57)
[2020-05-28] MEDS ORDERED: DIGO-20 PO (08:57)
[2020-05-28] MEDS ORDERED: ATOR20TA PO (08:57)
[2020-05-28] MEDS ORDERED: TRIA1TAB5 PO (08:57)
[2020-05-28] MEDS ORDERED: CARV-49 PO (08:57)
[2020-05-28] MEDS ORDERED: LANTUS SQ (08:57)
[2020-05-28] MEDS ORDERED: AMIO200T62 PO (08:57)
[2020-05-28] MEDS ORDERED: FURO-149 PO (08:57)
[2020-05-28] MEDS ORDERED: LISI-600 PO (08:57)
[2020-05-28] MEDS ORDERED: ROPI1TAB6 PO (08:59)
[2020-05-28] MEDS ORDERED: SITA100T15 PO (09:01)
== END 2020-05-27 23:59 | disposition home or self-care (01) ==
LOC: LAB 10:58
PROVIDERS: ATTEND Internal Medicine Cardiovascular Disease
DX: I48.91 Unspecified atrial fibrillation (principal)
CPT/HCPCS: 36415; 80048; 85025; 85610

== ENCOUNTER 2020-05-28 08:01 | Day surgery (SDC) | payer BC ==
[~2020-05-28] VITALS: Ht 167.6 cm; Wt 102.5 kg
[2020-05-28] VITALS (9 sets, daily range): BP systolic 112–152; BP diastolic 47–73
[2020-05-28] MEDS ORDERED: diphenhydrAMINE 25mg capsule PO ONE (08:30)
[2020-05-28] MEDS ORDERED: atropine 0.1mg/ml 10ml syringe IV ONE (08:30)
[2020-05-28] MEDS ORDERED: amiodarone 150mg/dext, iso-os 100 ML IV ONE (08:30)
[2020-05-28] MEDS ORDERED: normal saline 1000ml 1,000 ML IV SCH (08:30)
[2020-05-28] MEDS ORDERED: LORazepam 0.5 MG tablet PO ONE (08:30)
[2020-05-28] MEDS ORDERED: morphine 10mg/ml inj. IV ONE (08:30)
[2020-05-28] MEDS ORDERED: MIDAZolam 1mg/ml 10ml vial IV ONE (08:30)
[2020-05-28] MEDS ORDERED: TRIA1TAB5 PO (08:57)
[2020-05-28] MEDS ORDERED: ATOR20TA PO (08:57)
[2020-05-28] MEDS ORDERED: DIGO-20 PO (08:57)
[2020-05-28] MEDS ORDERED: FURO-149 PO (08:57)
[2020-05-28] MEDS ORDERED: AMIO200T62 PO (08:57)
[2020-05-28] MEDS ORDERED: LANTUS SQ (08:57)
[2020-05-28] MEDS ORDERED: LISI-600 PO (08:57)
[2020-05-28] MEDS ORDERED: CARV-49 PO (08:57)
[2020-05-28] MEDS ORDERED: APIX5TAB3 PO (08:57)
[2020-05-28] MEDS ORDERED: ROPI1TAB6 PO (08:59)
[2020-05-28] MEDS ORDERED: SITA100T15 PO (09:01)
== END 2020-05-28 13:00 | disposition home or self-care (01) ==
LOC: SSTAY O 08:01
PROVIDERS: ATTEND Internal Medicine Cardiovascular Disease
DX: I48.21 Permanent atrial fibrillation (principal); E11.9 Type 2 diabetes mellitus without complications; I10 Essential (primary) hypertension; G47.30 Sleep apnea, unspecified; E78.5 Hyperlipidemia, unspecified; I42.0 Dilated cardiomyopathy; K21.9 Gastro-esophageal reflux disease without esophagitis; F41.9 Anxiety disorder, unspecified; F32.9 Major depressive disorder, single episode, unspecified; M13.88 Other specified arthritis, other site; Z79.01 Long term (current) use of anticoagulants; Z79.899 Other long term (current) drug therapy; F17.210 Nicotine dependence, cigarettes, uncomplicated; Z88.2 Allergy status to sulfonamides; Z88.1 Allergy status to other antibiotic agents; Z88.5 Allergy status to narcotic agent; Z98.890 Other specified postprocedural states; Z82.49 Family history of ischemic heart disease and other diseases of the circulatory system; Z80.9 Family history of malignant neoplasm, unspecified
CPT/HCPCS: 82948; 92960; 93005; 94760; J2250; J2270; J7030; Q0163

== ENCOUNTER 2021-03-01 10:37 | Inpatient (IN) | payer BC, MEDICAID ==
[~2021-03-01] VITALS: Ht 170.2 cm; Wt 111.8 kg
[~2021-03-01 10:37] MED LIST changes: -AMIO200T61 PO; +AMIO200T62 PO; +CARV-49 PO; -CARV6.253 PO; +DIGO-20 PO; +FURO-149 PO; -INSU100I31 SQ; -LAN0.125T PO; -LANS30CA56 PO; +LANTUS SQ; +LISI20TA28 PO; -OMEG-143 PO; +SITA100T15 PO; +TRIA1TAB5 PO
[2021-03-01] MEDS ORDERED: ringers solution, lactated 1000ml IV soln IV ONE (11:05)
[2021-03-01] MEDS ORDERED: proCHLORperazine 10 MG/2 ml inj IV ONE (11:25)
[2021-03-01 12:09] LABS: BASOPHILS # (AUTO) 0.1 X10'3 (0-0.2); BASOPHILS % (AUTO) 0.8 % (0-1); EOSINOPHILS # (AUTO) 0.1 X10'3 (0-0.9); EOSINOPHILS % (AUTO) 0.7 % (0-6); HEMATOCRIT 45.5 % (35.0-45.0); HEMOGLOBIN 16.1 g/dl (12.0-16.0); LYMPHOCYTES % (AUTO) 11.2 % (21-51); MEAN CORPUSCULAR HEMOGLOBIN 32.2 PG (27.0-31.0); MEAN CORPUSCULAR HGB CONC 35.3 g/dL (33.0-36.5); MEAN CORPUSCULAR VOLUME 91.1 FL (78-98); MEAN PLATELET VOLUME 10.5 FL (7.4-10.4); MONOCYTES # (AUTO) 0.4 X10'3 (0-0.9); MONOCYTES % (AUTO) 4.4 % (2-12); NEUTROPHILS # (AUTO) 7.5 X10'3 (1.8-7.7); NEUTROPHILS % (AUTO) 82.9 % (42-75); PLATELET COUNT 260 X10'3 (140-440); RED CELL DISTRIBUTION WIDTH 12.4 % (11.5-14.5); WHITE BLOOD COUNT 9.1 X10'3 (4.5-11.0)
[2021-03-01 12:26] LABS: ALANINE AMINOTRANSFERASE 25 U/L (12-78); ALKALINE PHOSPHATASE 97 IU/L (46-116); ANION GAP 9 (8-16); ASPARTATE AMINO TRANSFERASE 24 U/L (10-37); BILIRUBIN,TOTAL 1.7 MG/DL (0.1-1.0); BLOOD UREA NITROGEN 18 MG/DL (7-18); BUN/CREATININE RATIO 18.2 (6.6-38.0); CALCIUM 10.1 MG/DL (8.5-10.1); CHLORIDE 80 MMOL/L (99-107); CREATININE 0.99 MG/DL (0.40-0.90); GLUCOSE 153 MG/DL (70-104); LIPASE < 50 U/L (73-393); TOTAL CARBON DIOXIDE 29.8 MMOL/L (24-32); TOTAL PROTEIN 8.2 G/DL (6.4-8.2); eGFR 58 ML/MIN
[2021-03-01 12:27] LABS: SODIUM 119 MMOL/L (135-145)
[2021-03-01 12:28] LABS: POTASSIUM 2.8 MMOL/L (3.5-5.1)
[2021-03-01] MEDS ORDERED: TRAM50TA2 PO (12:55)
[2021-03-01] MEDS ORDERED: ALBU18HF2 INH (12:55)
[2021-03-01] MEDS ORDERED: INSU100I31 SQ (12:55)
[2021-03-01 12:56] LABS: ETHANOL < 0.010 GM/DL (0.0-0.010)
[2021-03-01] MEDS: potassium Cl 10 mEq/100mL bag IV SCH ×2 (13:21→16:27)
[2021-03-01 14:14] LABS: URINE AMPHETAMINE SCREEN NEGATIVE (Neg); URINE BARBITUATE SCREEN NEGATIVE (Neg); URINE BENZODIAZEPINES SCREEN NEGATIVE (Neg); URINE CANNABINOID SCREEN POSITIVE (Neg); URINE COCAINE SCREEN NEGATIVE (Neg); URINE METHADONE SCREEN NEGATIVE (Neg); URINE OPIATE SCREEN NEGATIVE (Neg); URINE PHENCYCLIDINE SCREEN NEGATIVE (Neg)
[2021-03-01] MEDS ORDERED: potassium Cl 40MEQ/1/2NS 520ml 520 ML IV PRN ×2 (14:25)
[2021-03-01] MEDS ORDERED: ondansetron/PF 4mg/2ml inj IV PRN (14:25)
[2021-03-01] MEDS ORDERED: magnesium 2GM in 50ml NS 50 ML IV PRN (14:25)
[2021-03-01] MEDS ORDERED: magnesium 4gm in 100ml NS 100 ML IV PRN (14:25)
[2021-03-01] MEDS ORDERED: acetaminophen 325mg tablet PO PRN (14:25)
--- NOTE | 2021-03-01 16:00 | NUR ---
Patient in room PCU 3013. I have received report from Indira BAUTISTA and had the opportunity to ask questions and assume patient care.
[2021-03-01] MEDS ORDERED: albuterol 2.5 MG/3 ML nebule NEB PRN (16:25)
[2021-03-01] MEDS: normal saline 1000ml 1,000 ML IV SCH ×2 (16:27→22:24)
[2021-03-01 16:45] VITALS: BP 191/71
--- NOTE | 2021-03-01 17:12 | NUR ---
PAGER ID: [phone] MESSAGE: J[facility]Y [facility] [phone]. NEW PT GILBERT GOMES, HER BP IS 191/71, FEBRUARY I GIVE HER A ONE TIME DOSE OF SOMETHING/ SHE HASNT TAKEN ANYTHING TODAY AND NEXT DOSE IS TOMORROW A.M. THX PLS ADVISE
[2021-03-01] MEDS: traMADol 50MG tablet PO PRN (17:29)
[2021-03-01 18:00] VITALS: BP 182/76
--- NOTE | 2021-03-01 18:18 | NUR ---
Problems reprioritized. Patient report given, questions answered & plan of care reviewed with Pippa BAUTISTA.
--- NOTE | 2021-03-01 18:41 | NUR ---
Patient in room PCU 3013. I have received report from Sonya BAUTISTA and Baldo RN and had the opportunity to ask questions and assume patient care. Rounded on patient together. Patient stable. Introduced self and discussed plan of care for the evening, patient denies needs
--- NOTE | 2021-03-01 19:02 | NUR ---
Dr arevalo regarding HTN and chest discomfort PAGER ID: [phone] MESSAGE: Re: Eun Griffin 55F rm [id number] here for Hyponatrema/kalemia, ETOH use and N/V. Pt BP currently 162/64 HR 79 RR 17, previous BP 191/71 HR 74 RR17. Pt c/o chest discomfort that radiates to her back. May we have a STAT EKG? Pippa 1903
--- NOTE | 2021-03-01 19:04 | NUR ---
Patient complaining of chest discomfort 4-5/10 that radiates to her back. Patient relates it feels better sitting up and hurts worse laying on her left side. Patient relates discomfort has been present for about a week, BP: 162/64 [address] arevalo. STAT EKG ordered per protocol.
--- NOTE | 2021-03-01 19:05 | NUR ---
Spoke to Dr. Diaz. approved STAT EKG and asked me to notify network contract manager doctor.
--- NOTE | 2021-03-01 19:08 | NUR ---
Dr. arevalo PAGER ID: [phone] MESSAGE: Re: Eun Griffin 55F rm [id number] here for Hyponatrema/kalemia, ETOH use and N/V. c/o chest discomfort that radiates to her back, 4-02/23. BP currently 162/64 HR 79 RR 17, Acquiring STAT EKG. Pippa [id number]
--- NOTE | 2021-03-01 19:19 | NUR ---
STAT EKG Acquired PAGER ID: [phone] MESSAGE: Re: Eun Griffin 55F [id number] STAT EKG acquired, needs to be read.. Pippa [phone]
--- NOTE | 2021-03-01 19:25 | NUR ---
STAT EKG read by ER Doctor Jhoan at 1915. No STEMI, no new orders. EKG placed in chart.
[2021-03-01] MEDS: K and/or MAG REPLACEMENT MC SCH (20:00)
[2021-03-01] MEDS: traZODone 50mg tablet PO SCH (20:50)
[2021-03-01] MEDS: apixaban 5mg tablet PO SCH (20:50)
[2021-03-01] MEDS: atorvastatin 20mg tablet PO SCH (20:51)
[2021-03-01] MEDS: amiodarone 100mg tablet PO SCH (20:51)
[2021-03-01] MEDS: duloxetine 30mg CAPSULE.DR PO SCH (20:51)
[2021-03-01] MEDS: docusate sod 100mg capsule PO SCH (20:51)
[2021-03-01] MEDS: potassium Cl 20 mEq SR tablet PO PRN (20:52)
[2021-03-01] MEDS: ROPINIRole 1mg tablet PO SCH (20:52)
[2021-03-01] MEDS: carvedilol 6.25mg tablet PO SCH (20:52)
[2021-03-01] MEDS ORDERED: MESSAGE TO PHARMACY PO ONE (21:05)
[2021-03-01] MEDS ORDERED: glucagon, human recombinant 1mg kit SUBCUT PRN (21:05)
[2021-03-01] MEDS ORDERED: dextrose ORAL solution 15 GM/59 ML bottle PO PRN ×2 (21:05)
[2021-03-01] MEDS ORDERED: dextrose 50%-water 50ml dispensing syringe IV PRN ×2 (21:05)
[2021-03-01] MEDS: insulin glargine (Lantus) pen - multi-dose SQ SCH (21:42)
[2021-03-01 22:00] VITALS: BP 165/57
[2021-03-02 02:00] VITALS: BP 149/60
[2021-03-02] MEDS: potassium Cl 20 mEq SR tablet PO PRN ×3 (03:14→13:07)
--- NOTE | 2021-03-02 04:19 | NUR ---
Patient slept comfortably in bedside recliner all night.
--- NOTE | 2021-03-02 06:18 | NUR ---
Problems reprioritized. Patient report given, questions answered & plan of care reviewed with Sonya BAUTISTA and Baldo BAUTISTA.
--- NOTE | 2021-03-02 06:39 | NUR ---
Patient in room PCU 3013. I have received report from Nohemi BAUTISTA and had the opportunity to ask questions and assume patient care.
--- NOTE | 2021-03-02 06:42 | NUR ---
Patient in room PCU 3013. I have received report from Pippa BAUTISTA and had the opportunity to ask questions and assume patient care.
[2021-03-02 07:04] LABS: BASOPHILS # (AUTO) 0.1 X10'3 (0-0.2); BASOPHILS % (AUTO) 0.6 % (0-1); EOSINOPHILS # (AUTO) 0.1 X10'3 (0-0.9); EOSINOPHILS % (AUTO) 1.4 % (0-6); HEMATOCRIT 39.3 % (35.0-45.0); HEMOGLOBIN 13.9 g/dl (12.0-16.0); LYMPHOCYTES # (AUTO) 1.8 X10'3 (1.1-4.8); MEAN CORPUSCULAR HEMOGLOBIN 32.5 PG (27.0-31.0); MEAN CORPUSCULAR HGB CONC 35.3 g/dL (33.0-36.5); MEAN PLATELET VOLUME 10.2 FL (7.4-10.4); MONOCYTES # (AUTO) 0.7 X10'3 (0-0.9); MONOCYTES % (AUTO) 7.6 % (2-12); NEUTROPHILS # (AUTO) 6.5 X10'3 (1.8-7.7); NEUTROPHILS % (AUTO) 70.4 % (42-75); PLATELET COUNT 211 X10'3 (140-440); RED BLOOD COUNT 4.27 X10'6 (4.20-5.60); RED CELL DISTRIBUTION WIDTH 12.4 % (11.5-14.5); WHITE BLOOD COUNT 9.2 X10'3 (4.5-11.0)
[2021-03-02 07:14] VITALS: BP 132/48
[2021-03-02 07:19] LABS: ALBUMIN 3.4 G/DL (3.4-5.0); ANION GAP 8 (8-16); BLOOD UREA NITROGEN 24 MG/DL (7-18); BUN/CREATININE RATIO 21.2 (6.6-38.0); CALCIUM 8.2 MG/DL (8.5-10.1); CHLORIDE 82 MMOL/L (99-107); CREATININE 1.13 MG/DL (0.40-0.90); GLUCOSE 136 MG/DL (70-104); MAGNESIUM 1.4 MG/DL (1.5-2.4); TOTAL CARBON DIOXIDE 30.2 MMOL/L (24-32); eGFR 50 ML/MIN
[2021-03-02 07:40] LABS: SODIUM 120 MMOL/L (135-145)
[2021-03-02 07:41] LABS: POTASSIUM 2.9 MMOL/L (3.5-5.1)
[2021-03-02 07:57] LABS: HEMOGLOBIN A1C 5.7 % (4.5-6.2)
[2021-03-02] MEDS: K and/or MAG REPLACEMENT MC SCH ×2 (08:10→20:00)
[2021-03-02] MEDS: traMADol 50MG tablet PO PRN ×2 (08:18→13:07)
[2021-03-02] MEDS: digoxin 125mcg (0.125mg) tablet PO SCH (08:19)
[2021-03-02] MEDS: amiodarone 100mg tablet PO SCH ×2 (08:20→20:00)
[2021-03-02] MEDS: docusate sod 100mg capsule PO SCH ×2 (08:20→21:03)
[2021-03-02] MEDS: apixaban 5mg tablet PO SCH ×2 (08:20→21:03)
[2021-03-02] MEDS: lisinopril 20mg tablet PO SCH (08:20)
[2021-03-02] MEDS: carvedilol 6.25mg tablet PO SCH ×2 (08:21→21:02)
[2021-03-02] MEDS ORDERED: haloperidol 5mg tablet PO PRN (09:30)
[2021-03-02] MEDS ORDERED: LORazepam 2 mg/ml vial IV PRN (09:30)
[2021-03-02] MEDS: Potassium Cl inj 20 MEQ in normal saline 1000ml 990 ML IV SCH ×2 (10:52→21:47)
[2021-03-02] MEDS: magnesium Cl slow-release 64mg tablet PO PRN (10:52)
[2021-03-02 11:00] VITALS: BP 111/49
[2021-03-02] MEDS ORDERED: ondansetron 4mg rapidly disintigrating tab PO PRN (14:00)
[2021-03-02 15:00] VITALS: BP 126/64
[2021-03-02 18:00] VITALS: BP 172/84
--- NOTE | 2021-03-02 18:27 | NUR ---
Problems reprioritized. Patient report given, questions answered & plan of care reviewed with Pippa Trejo.
--- NOTE | 2021-03-02 18:36 | NUR ---
5 Addendum: 03/02/21 at 1837 by Pippa Daigle RN Disregard, typing error
--- NOTE | 2021-03-02 18:36 | NUR ---
Patient in room U 3013. I have received report from Sonya BAUTISTA and Baldo BAUTISTA and had the opportunity to ask questions and assume patient care. Rounded on patient. Patient sitting up in recliner, finished eating dinner. Delivered fresh water. Discussed plan of care for the evening. Patient denies needs.
[2021-03-02] MEDS: traZODone 50mg tablet PO SCH (21:02)
[2021-03-02] MEDS: famotidine 20mg tablet PO SCH (21:03)
[2021-03-02] MEDS: atorvastatin 20mg tablet PO SCH (21:03)
[2021-03-02] MEDS: duloxetine 30mg CAPSULE.DR PO SCH (21:03)
[2021-03-02] MEDS: ROPINIRole 1mg tablet PO SCH (21:03)
[2021-03-02] MEDS: insulin glargine (Lantus) pen - multi-dose SQ SCH (21:57)
[2021-03-02 22:00] VITALS: BP 127/47
--- NOTE | 2021-03-02 22:53 | NUR ---
Patient usually takes 22-26 units of Long acting insulin at home and is comfortable taking 12 units of Lantus per protocol. Patient has not been receiving short-acting insulin during the day. Has only had one BGL >200. Addendum: 03/02/21 at 2259 by Pippa Daigle RN I was told during report that patient has not met our Hyperglycemic protocol. I did not cover her for her evening meal with short-acting insulin. During the 2100 BGL checks I realized patient was placed on protocol last night at 2100 when her first BGL was 213. Except for this BGL, she has not had 2 consecutive sugars >160 or another BGL >200.
[2021-03-03] MEDS: magnesium Cl slow-release 64mg tablet PO PRN (00:12)
[2021-03-03] MEDS: potassium Cl 20 mEq SR tablet PO PRN (00:12)
[2021-03-03 02:00] VITALS: BP 123/48
[2021-03-03] MEDS: traMADol 50MG tablet PO PRN ×2 (03:00→21:31)
[2021-03-03] MEDS: Potassium Cl inj 20 MEQ in normal saline 1000ml 990 ML IV SCH ×2 (06:03→15:30)
--- NOTE | 2021-03-03 06:33 | NUR ---
Patient slept most of the night in the bedside recliner and then moved self to bed.
--- NOTE | 2021-03-03 06:34 | NUR ---
Problems reprioritized. Patient report given, questions answered & plan of care reviewed with Maggie BAUTISTA.
[2021-03-03 07:00] VITALS: BP 154/54
[2021-03-03] MEDS: K and/or MAG REPLACEMENT MC SCH ×2 (08:00→20:00)
[2021-03-03] MEDS: insulin Lispro (HumaLOG) vial - multi-dose SQ SCH ×2 (08:52→19:40)
[2021-03-03] MEDS: multivitamins, therapeutics tablet PO SCH (08:55)
[2021-03-03] MEDS: apixaban 5mg tablet PO SCH ×2 (08:56→19:35)
[2021-03-03] MEDS: lisinopril 20mg tablet PO SCH (08:57)
[2021-03-03] MEDS: famotidine 20mg tablet PO SCH ×2 (08:57→19:35)
[2021-03-03] MEDS: digoxin 125mcg (0.125mg) tablet PO SCH (08:57)
[2021-03-03] MEDS: carvedilol 6.25mg tablet PO SCH ×2 (08:57→19:35)
[2021-03-03] MEDS: amiodarone 100mg tablet PO SCH ×2 (08:58→19:35)
[2021-03-03] MEDS: docusate sod 100mg capsule PO SCH ×2 (08:58→19:34)
[2021-03-03] MEDS: thiamine 100mg tablet PO SCH (08:58)
[2021-03-03 09:20] LABS: BASOPHILS # (AUTO) 0.1 X10'3 (0-0.2); BASOPHILS % (AUTO) 0.9 % (0-1); EOSINOPHILS # (AUTO) 0.2 X10'3 (0-0.9); EOSINOPHILS % (AUTO) 2.8 % (0-6); HEMATOCRIT 40.3 % (35.0-45.0); HEMOGLOBIN 13.7 g/dl (12.0-16.0); LYMPHOCYTES # (AUTO) 2.1 X10'3 (1.1-4.8); MEAN CORPUSCULAR HEMOGLOBIN 32.5 PG (27.0-31.0); MEAN CORPUSCULAR HGB CONC 34.1 g/dL (33.0-36.5); MEAN CORPUSCULAR VOLUME 95.3 FL (78-98); MEAN PLATELET VOLUME 10.6 FL (7.4-10.4); MONOCYTES # (AUTO) 0.5 X10'3 (0-0.9); MONOCYTES % (AUTO) 6.6 % (2-12); NEUTROPHILS % (AUTO) 62.7 % (42-75); PLATELET COUNT 182 X10'3 (140-440); RED BLOOD COUNT 4.22 X10'6 (4.20-5.60); RED CELL DISTRIBUTION WIDTH 12.9 % (11.5-14.5); WHITE BLOOD COUNT 7.9 X10'3 (4.5-11.0)
[2021-03-03 09:34] LABS: ALBUMIN 3.1 G/DL (3.4-5.0); AMYLASE 32 U/L (25-115); ANION GAP 8 (8-16); BLOOD UREA NITROGEN 26 MG/DL (7-18); BUN/CREATININE RATIO 26.5 (6.6-38.0); CALCIUM 8.2 MG/DL (8.5-10.1); CHLORIDE 93 MMOL/L (99-107); CREATININE 0.98 MG/DL (0.40-0.90); GLUCOSE 179 MG/DL (70-104); MAGNESIUM 1.7 MG/DL (1.5-2.4); PHOSPHORUS 2.9 MG/DL (2.3-4.5); POTASSIUM 4.6 MMOL/L (3.5-5.1); SODIUM 127 MMOL/L (135-145); eGFR 58 ML/MIN
[2021-03-03 09:45] LABS: LIPASE 50 U/L (73-393)
[2021-03-03 11:00] VITALS: BP 138/46
--- NOTE | 2021-03-03 14:54 | NUR ---
Emergent situation with another patient caused missed insulin admin after noon meal
[2021-03-03 15:00] VITALS: BP 128/46
[2021-03-03 18:00] VITALS: BP 137/70
--- NOTE | 2021-03-03 18:24 | NUR ---
Problems reprioritized. Patient report given, questions answered & plan of care reviewed with Pippa BAUTISTA . Patient resting and in no acute distress.
--- NOTE | 2021-03-03 19:06 | NUR ---
Patient in room PCU 3013. I have received report from Maggie BAUTISTA and had the opportunity to ask questions and assume patient care. Rounded on patient. Patient sitting up in recliner, denies needs. Discussed plan of care for the evening.
[2021-03-03] MEDS ORDERED: potassium Cl 20mEq in NS 1,000 ML IV SCH (21:05)
[2021-03-03] MEDS: atorvastatin 20mg tablet PO SCH (21:29)
[2021-03-03] MEDS: ROPINIRole 1mg tablet PO SCH (21:29)
[2021-03-03] MEDS: traZODone 50mg tablet PO SCH (21:30)
[2021-03-03] MEDS: duloxetine 30mg CAPSULE.DR PO SCH (21:31)
[2021-03-03 22:00] VITALS: BP 145/53
[2021-03-04 02:00] VITALS: BP 154/53
[2021-03-04 02:45] LABS: BASOPHILS # (AUTO) 0.1 X10'3 (0-0.2); BASOPHILS % (AUTO) 1.3 % (0-1); EOSINOPHILS # (AUTO) 0.2 X10'3 (0-0.9); EOSINOPHILS % (AUTO) 2.8 % (0-6); HEMATOCRIT 35.8 % (35.0-45.0); HEMOGLOBIN 12.4 g/dl (12.0-16.0); LYMPHOCYTES # (AUTO) 2.5 X10'3 (1.1-4.8); LYMPHOCYTES % (AUTO) 30.5 % (21-51); MEAN CORPUSCULAR HEMOGLOBIN 32.6 PG (27.0-31.0); MEAN CORPUSCULAR HGB CONC 34.7 g/dL (33.0-36.5); MEAN PLATELET VOLUME 10.2 FL (7.4-10.4); MONOCYTES # (AUTO) 0.5 X10'3 (0-0.9); MONOCYTES % (AUTO) 6.5 % (2-12); NEUTROPHILS # (AUTO) 4.8 X10'3 (1.8-7.7); NEUTROPHILS % (AUTO) 58.9 % (42-75); PLATELET COUNT 184 X10'3 (140-440); RED BLOOD COUNT 3.81 X10'6 (4.20-5.60); RED CELL DISTRIBUTION WIDTH 12.8 % (11.5-14.5); WHITE BLOOD COUNT 8.1 X10'3 (4.5-11.0)
[2021-03-04 02:47] LABS: ALBUMIN 3.1 G/DL (3.4-5.0); AMYLASE 35 U/L (25-115); ANION GAP 6 (8-16); BLOOD UREA NITROGEN 20 MG/DL (7-18); BUN/CREATININE RATIO 25.3 (6.6-38.0); CALCIUM 8.3 MG/DL (8.5-10.1); CHLORIDE 98 MMOL/L (99-107); CREATININE 0.79 MG/DL (0.40-0.90); GLUCOSE 104 MG/DL (70-104); LIPASE < 50 U/L (73-393); MAGNESIUM 1.7 MG/DL (1.5-2.4); POTASSIUM 4.6 MMOL/L (3.5-5.1); SODIUM 133 MMOL/L (135-145); TOTAL CARBON DIOXIDE 28.6 MMOL/L (24-32); eGFR 75 ML/MIN
--- NOTE | 2021-03-04 05:06 | NUR ---
Doctor paged regarding fluid change PAGER ID: [phone] MESSAGE: Re: Eun Griffin 55F [id number], here for hyponatremia & hypokalemia. Current Na is 133, K is 4.6. May we stop Potassium 20mEq in NS 100 mL/hour and switch to Normal Saline 100 mL/hour? Pippa [id number]
--- NOTE | 2021-03-04 05:22 | NUR ---
Spoke to Dr. Salazar on the telephone regarding changing from Potassium 20mEq in NS 100 mL/hour to Normal Saline 100 mL/hour. Dr. Salazar comfortable starting Normal Saline.
[2021-03-04] MEDS: normal saline 1000ml 1,000 ML IV SCH ×2 (05:56→16:17)
[2021-03-04 06:00] VITALS: BP 164/64
--- NOTE | 2021-03-04 06:00 | NUR ---
Patient in room PCU 3013. I have received report from Pippa BAUTISTA and had the opportunity to ask questions and assume patient care.
--- NOTE | 2021-03-04 06:43 | NUR ---
Problems reprioritized. Patient report given, questions answered & plan of care reviewed with Stevie RN and Americo RN. Rounded with nurses and introduced them to patient. patient denies needs.
[2021-03-04] MEDS: K and/or MAG REPLACEMENT MC SCH (08:00)
[2021-03-04] MEDS: famotidine 20mg tablet PO SCH (08:32)
[2021-03-04] MEDS: apixaban 5mg tablet PO SCH (08:32)
[2021-03-04] MEDS: amiodarone 100mg tablet PO SCH (08:33)
[2021-03-04] MEDS: docusate sod 100mg capsule PO SCH (08:33)
[2021-03-04] MEDS: multivitamins, therapeutics tablet PO SCH (08:33)
[2021-03-04] MEDS: traMADol 50MG tablet PO PRN (08:33)
[2021-03-04] MEDS: thiamine 100mg tablet PO SCH (08:34)
[2021-03-04] MEDS: digoxin 125mcg (0.125mg) tablet PO SCH (08:34)
[2021-03-04] MEDS: carvedilol 6.25mg tablet PO SCH (08:35)
[2021-03-04] MEDS: lisinopril 20mg tablet PO SCH (08:35)
[2021-03-04] MEDS: insulin Lispro (HumaLOG) vial - multi-dose SQ SCH ×2 (08:39→13:31)
[2021-03-04] MEDS ORDERED: LORazepam 2 mg/ml vial IV PRN (09:30)
[2021-03-04] MEDS ORDERED: LORazepam 1 MG tablet PO PRN (09:30)
[2021-03-04 11:00] VITALS: BP 143/61
[2021-03-04] MEDS ORDERED: MULT-25 PO (13:15)
[2021-03-04] MEDS ORDERED: FAMO20TA8 PO (13:15)
[2021-03-04] MEDS ORDERED: THIA50TA10 PO (13:15)
[2021-03-04] MEDS ORDERED: FOLI0.4T6 PO (13:15)
[2021-03-04] MEDS ORDERED: SODI1TAB2 PO (14:12)
[2021-03-04] MEDS ORDERED: sodium chloride 1gm tablet PO SCH (17:00)
--- NOTE | 2021-03-04 17:45 | NUR ---
Pt DC'd home with friend. IV removed, canula intact. Tele-box removed and returned to tele-tech. Pt alert and oriented and vitals WNL upon DC. Per Dr. Quinones Pt is stable for DC. DC paperwork printed out and gone over with Pt. Allowed Pt to ask questions concerning DC and then answered them. New prescriptions called into [facility] pharmacy in [place]. Paperwork regarding alcohol and seeking help given to Pt. Specialist Wound Care spoke with Pt prior to DC and discussed seeking help for alcoholism. Pt's belongings gathered and sent with Pt. Pt wheeled down to lobby via wheelchair and left in private vehicle with friend for home.
[2021-03-06] MEDS ORDERED: LORazepam 2 mg/ml vial IV PRN (09:30)
[2021-03-06] MEDS ORDERED: LORazepam 1 MG tablet PO PRN (09:30)
== END 2021-03-04 17:45 | disposition home or self-care (01) | DRG 241 ==
LOC: ER 10:38 → ED HOLD 14:21 → EDBEDREQ 16:00 → PCU 3S 16:34
PROVIDERS: ADMIT Internal Medicine; ATTEND Internal Medicine
DX: K29.70 Gastritis, unspecified, without bleeding (principal); I11.0 Hypertensive heart disease with heart failure; I50.22 Chronic systolic (congestive) heart failure; E87.1 Hypo-osmolality and hyponatremia; N28.9 Disorder of kidney and ureter, unspecified; E11.9 Type 2 diabetes mellitus without complications; E78.5 Hyperlipidemia, unspecified; E87.6 Hypokalemia; F10.20 Alcohol dependence, uncomplicated; K21.9 Gastro-esophageal reflux disease without esophagitis; R07.89 Other chest pain; Z60.2 Problems related to living alone; T50.2X5A Adverse effect of carbonic-anhydrase inhibitors, benzothiadiazides and other diuretics, initial encounter; F40.00 Agoraphobia, unspecified; I48.91 Unspecified atrial fibrillation; F12.90 Cannabis use, unspecified, uncomplicated; F41.9 Anxiety disorder, unspecified; Z79.4 Long term (current) use of insulin; Z88.5 Allergy status to narcotic agent; Z88.8 Allergy status to other drugs, medicaments and biological substances; Z88.2 Allergy status to sulfonamides; Y92.89 Other specified places as the place of occurrence of the external cause
CPT/HCPCS: 36415; 80048; 80053; 80305; 80320; 82150; 82948; 83036; 83690; 83735; 84100; 84132; 84484; 85025; 85610; 87081; 93306; 94760; 96374; 99285; G0378; J0780; J1815; J2405; J3480; J7030; J7120

== ENCOUNTER 2023-01-25 06:04 | Day surgery (SDC) | payer MEDICAID ==
[2023-01-24 15:50] LABS: BASOPHILS # (AUTO) 0.1 X10'3 (0-0.2); EOSINOPHILS # (AUTO) 0.2 X10'3 (0-0.9); EOSINOPHILS % (AUTO) 2.6 % (0-6); HEMATOCRIT 36.9 % (35.0-45.0); HEMOGLOBIN 12.2 g/dl (12.0-16.0); LYMPHOCYTES # (AUTO) 1.4 X10'3 (1.1-4.8); LYMPHOCYTES % (AUTO) 17.2 % (21-51); MEAN CORPUSCULAR HGB CONC 33.2 g/dL (33.0-36.5); MEAN CORPUSCULAR VOLUME 87.5 FL (78-98); MEAN PLATELET VOLUME 10.4 FL (7.4-10.4); MONOCYTES # (AUTO) 0.5 X10'3 (0-0.9); NEUTROPHILS # (AUTO) 5.8 X10'3 (1.8-7.7); NEUTROPHILS % (AUTO) 73.2 % (42-75); PLATELET COUNT 202 X10'3 (140-440); RED BLOOD COUNT 4.22 X10'6 (4.20-5.60); RED CELL DISTRIBUTION WIDTH 15.2 % (11.5-14.5); WHITE BLOOD COUNT 7.9 X10'3 (4.5-11.0)
[2023-01-24 16:02] LABS: ALBUMIN 2.9 G/DL (3.4-5.0); ANION GAP 9 (8-16); BLOOD UREA NITROGEN 32 MG/DL (7-18); BUN/CREATININE RATIO 18.7 (10.0-20.0); CHLORIDE 103 MMOL/L (99-107); CREATININE 1.71 MG/DL (0.40-0.90); GLUCOSE 182 MG/DL (70-104); POTASSIUM 3.9 MMOL/L (3.5-5.1); SODIUM 141 MMOL/L (135-145); TOTAL CARBON DIOXIDE 29.5 MMOL/L (24-32); eGFR 31 ML/MIN
[2023-01-24 16:04] LABS: APTT 27 SECONDS (22-32)
[~2023-01-25] VITALS: Ht 170.2 cm; Wt 110.4 kg
[2023-01-25] VITALS (12 sets, daily range): BP systolic 128–167; BP diastolic 45–81
[~2023-01-25 06:04] MED LIST changes: +ALBU18HF2 INH; -DICL75TA5 PO; +FAMO20TA8 PO; -FURO-149 PO; +INSU100I31 SQ; +MULT-25 PO; -SITA100T15 PO; +SODI1TAB2 PO; +THIA50TA10 PO; +TRAM50TA2 PO; -TRIA1TAB5 PO
[2023-01-25] MEDS ORDERED: acetylcysteine 200 MG/ml 4ml vial PO PRN (06:29)
[2023-01-25] MEDS ORDERED: LORazepam 0.5 MG tablet PO PRN (06:30)
[2023-01-25] MEDS ORDERED: normal saline 1,000 ML IV SCH (06:30)
[2023-01-25] MEDS ORDERED: diphenhydrAMINE 25mg capsule PO PRN (06:30)
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
[2023-01-25] MEDS ORDERED: VITA0.4T18 (06:46)
[2023-01-25] MEDS ORDERED: ERGO500093 PO (06:46)
[2023-01-25] MEDS ORDERED: AMOX875T10 PO (06:46)
[2023-01-25] MEDS ORDERED: POTA10TA (06:46)
[2023-01-25] MEDS ORDERED: FURO40TA4 PO (06:46)
[2023-01-25] MEDS ORDERED: DULO60CA65 PO (06:46)
[2023-01-25] MEDS ORDERED: LISI40TA13 PO (06:46)
[2023-01-25] MEDS ORDERED: LEVO75TA98 PO (06:46)
[2023-01-25] MEDS: SODIUM BICARB 150mEq/D5W 1L 999 ML IV SCH ×4 (07:03→10:00)
[2023-01-25] MEDS ORDERED: LIDOcaine 1% (10mg/ml) 2ml vial ONE (07:25)
[2023-01-25] MEDS ORDERED: verapamil 2.5 mg/ml inj IV ONE (07:25)
[2023-01-25] MEDS ORDERED: nitroGLYCERIN-Tridil 50MG/D5W 250 ML IV ONE (07:25)
[2023-01-25] MEDS ORDERED: fentaNYL/PF 50MCG/1 ML 2ML syringe ONE (07:25)
[2023-01-25] MEDS ORDERED: midazolam 1 mg/ML 2ml injection ONE (07:25)
[2023-01-25] MEDS ORDERED: iohexol 350 MG/ML 50ML vial IV ONE (07:26)
[2023-01-25] MEDS ORDERED: heparin 1,000unit/ml 10ml vial 10 ML ONE (07:26)
[2023-01-25] MEDS ORDERED: iohexol 350MG/ML 100ml bottle IV ONE (07:26)
[2023-01-25] MEDS ORDERED: hydrALAZINE 20mg/ml inj. IV ONE (09:01)
[2023-01-25 09:33] LABS: ISTAT Hct MIX 35 %PCV (35-45); ISTAT Hct MIX 36 %PCV (35-45); ISTAT O2 SATURATION MIX VENOUS 56 % (60-80); ISTAT O2 SATURATION MIX VENOUS 88 % (60-80); ISTAT SOURCE BLNK
[2023-01-25] MEDS ORDERED: lisinopril 20mg tablet PO ONE (09:45)
[2023-01-25] MEDS ORDERED: carVEDilol 12.5mg tablet PO ONE (09:45)
[2023-01-25] MEDS ORDERED: diltiazem 5mg/ml 5ml inj. IV PRN (09:50)
== END 2023-01-25 15:50 | disposition home or self-care (01) ==
LOC: SSTAY O 06:04
PROVIDERS: ATTEND Internal Medicine Cardiovascular Disease
DX: R94.39 Abnormal result of other cardiovascular function study (principal); I25.10 Atherosclerotic heart disease of native coronary artery without angina pectoris; Z79.01 Long term (current) use of anticoagulants; Z79.899 Other long term (current) drug therapy; E11.9 Type 2 diabetes mellitus without complications; I10 Essential (primary) hypertension; E78.5 Hyperlipidemia, unspecified; M19.90 Unspecified osteoarthritis, unspecified site; F41.8 Other specified anxiety disorders; Z98.890 Other specified postprocedural states
CPT/HCPCS: 36415; 76937; 80048; 82803; 82948; 85014; 85025; 85610; 85730; 93005; 93460; 99152; 99153; A6258; C1769; C1894; J0360; J1644; J2250; J3010; J3490; J7030; Q0163; Q9967; A4615; A6402; C1725; C1751

== ENCOUNTER 2023-03-17 12:06 | Inpatient (IN) | payer MEDICAID ==
[~2023-03-17] VITALS: Ht 167.6 cm; Wt 109.1 kg
[~2023-03-17 12:06] MED LIST changes: +AMOX875T10 PO; -DULO-31 PO; +DULO60CA65 PO; +ERGO500093 PO; -FAMO20TA8 PO; +FURO40TA4 PO; -LANTUS SQ; +LEVO75TA98 PO; -LISI20TA28 PO; +LISI40TA13 PO; +POTA10TA PO; -ROPI1TAB6 PO; -SODI1TAB2 PO; -THIA50TA10 PO; -TRAM50TA2 PO; +VITA0.4T18
[2023-03-17] MEDS ORDERED: normal saline 1000ML IV soln IV ONE (12:20)
[2023-03-17 12:43] LABS: BASOPHILS # (AUTO) 0.1 X10'3 (0-0.2); BASOPHILS % (AUTO) 0.9 % (0-1); EOSINOPHILS # (AUTO) 0.1 X10'3 (0-0.9); EOSINOPHILS % (AUTO) 1.3 % (0-6); HEMATOCRIT 22.8 % (35.0-45.0); HEMOGLOBIN 7.4 g/dl (12.0-16.0); LYMPHOCYTES # (AUTO) 1.4 X10'3 (1.1-4.8); LYMPHOCYTES % (AUTO) 12.5 % (21-51); MEAN CORPUSCULAR HEMOGLOBIN 28.8 PG (27.0-31.0); MEAN CORPUSCULAR HGB CONC 32.3 g/dL (33.0-36.5); MEAN CORPUSCULAR VOLUME 89.1 FL (78-98); MEAN PLATELET VOLUME 10.6 FL (7.4-10.4); MONOCYTES # (AUTO) 0.6 X10'3 (0-0.9); MONOCYTES % (AUTO) 5.1 % (2-12); NEUTROPHILS % (AUTO) 80.2 % (42-75); PLATELET COUNT 236 X10'3 (140-440); RED BLOOD COUNT 2.56 X10'6 (4.20-5.60); RED CELL DISTRIBUTION WIDTH 15.6 % (11.5-14.5); WHITE BLOOD COUNT 11.2 X10'3 (4.5-11.0)
--- NOTE | 2023-03-17 12:51 | NUR ---
RN WAS ATTEMPTING IV AND CT ARRIVED. PT TAKEN TO CT. RN WILL OBTAIN IV ONCE SHE RETURNS.
[2023-03-17 13:00] LABS: ALANINE AMINOTRANSFERASE 19 U/L (12-78); ALBUMIN/GLOBULIN RATIO 0.9 (1.1-1.5); ALKALINE PHOSPHATASE 40 IU/L (46-116); ANION GAP 6 (8-16); ASPARTATE AMINO TRANSFERASE 18 U/L (10-37); BILIRUBIN,TOTAL 0.4 MG/DL (0.1-1.0); BLOOD UREA NITROGEN 23 MG/DL (7-18); BUN/CREATININE RATIO 11.1 (10.0-20.0); CALCIUM 8.1 MG/DL (8.5-10.1); CHLORIDE 102 MMOL/L (99-107); CREATININE 2.07 MG/DL (0.40-0.90); GLUCOSE 173 MG/DL (70-104); POTASSIUM 4.1 MMOL/L (3.5-5.1); SODIUM 138 MMOL/L (135-145); TOTAL CARBON DIOXIDE 29.8 MMOL/L (24-32); TOTAL PROTEIN 6.3 G/DL (6.4-8.2); eGFR 24 ML/MIN
--- NOTE | 2023-03-17 13:25 | NUR ---
RN UNABLE TO OBTAIN IV. JIMI BAUTISTA ATTEMPTING IV WITH US AT THIS TIME.
[2023-03-17 13:42] LABS: PLATELET ESTIMATE NORMAL
[2023-03-17 13:46] LABS: LARGE PLATELETS FEW
[2023-03-17 13:47] LABS: ANISOCYTOSIS 1+; HYPOCHROMASIA 1+
[2023-03-17] MEDS ORDERED: acetaminophen 325mg tablet PO PRN ×2 (14:05)
[2023-03-17] MEDS ORDERED: magnesium hydroxide 30ml (MOM) UD suspension PO PRN (14:05)
[2023-03-17] MEDS ORDERED: magnesium 4gm in 100ml NS 100 ML IV PRN (14:05)
[2023-03-17] MEDS ORDERED: HYDROcodone/acetaminophen 5mg/325mg tablet PO PRN (14:05)
[2023-03-17] MEDS ORDERED: mag hydrox/Alum hydrox/simeth 30ml oral suspension PO PRN (14:05)
[2023-03-17] MEDS ORDERED: magnesium Cl slow-release 64mg tablet PO PRN (14:05)
[2023-03-17] MEDS ORDERED: glucagon, human recombinant 1mg kit SUBCUT PRN (14:05)
[2023-03-17] MEDS ORDERED: pantoprazole 40mg IV 80 MG in normal saline 100ml IV soln 100 ML IV ONE (14:05)
[2023-03-17] MEDS ORDERED: morphine 2 MG/ML inj. syringe IV PRN ×2 (14:05)
[2023-03-17] MEDS ORDERED: diphenhydrAMINE 25mg capsule PO PRN (14:05)
[2023-03-17] MEDS ORDERED: ondansetron/PF 4mg/2ml inj IV PRN (14:05)
[2023-03-17] MEDS ORDERED: magnesium 2GM in 50ml NS 50 ML IV PRN (14:05)
[2023-03-17] MEDS ORDERED: MESSAGE TO PHARMACY PO ONE (14:05)
[2023-03-17] MEDS ORDERED: insulin Lispro (HumaLOG) vial - multi-dose SQ SCH (14:05)
[2023-03-17] MEDS ORDERED: dextrose 50%-water 50ml dispensing syringe IV PRN ×2 (14:05)
[2023-03-17] MEDS ORDERED: DEXTROSE 15 GM of carb/4 tabs (each vial/BOTTLE has 4 tablets) PO PRN (14:05)
[2023-03-17] MEDS ORDERED: acetaminophen 650mg rectal suppository RC PRN (14:05)
[2023-03-17] MEDS ORDERED: potassium Cl 40MEQ/1/2NS 520ml 520 ML IV PRN (14:05)
[2023-03-17] MEDS ORDERED: potassium Cl 20 mEq SR tablet PO PRN ×2 (14:05)
[2023-03-17 14:06] LABS: CLARITY,URINE CLEAR (Clear); COLOR,URINE YELLOW (Yellow); GLUCOSE, URINE >=1000 mg/dl (Neg); KETONES,URINE NEGATIVE (Neg); LEUKOCYTE ESTERASE ,URINE NEGATIVE (Neg); NITRITES, URINE NEGATIVE (Neg); OCCULT BLOOD,URINE NEGATIVE (Neg); PH,URINE 6.5 (4.8-8.0); PROTEIN,URINE >=300 mg/dl (Neg); UROBILINOGEN,URINE 0.2 E.U/dL (0.2-1.0)
[2023-03-17 14:17] LABS: UA COLLECTION TYPE CLN CATCH MIDSTREAM
[2023-03-17 14:24] LABS: RBC,URINE 0-2 /HPF (0-2)
[2023-03-17 14:26] LABS: BACTERIA,URINE FEW /HPF (Neg); TRANSITIONAL EPI CELLS,URINE FEW /HPF
[2023-03-17 14:29] LABS: SQUAMOUS EPITHELIAL CELL,UR FEW /LPF (FEW)
[2023-03-17 14:50] VITALS: BP 151/60
[2023-03-17 14:59] LABS: HEMOGLOBIN A1C 7.1 % (4.5-6.2)
[2023-03-17 15:05] VITALS: BP 165/65
[2023-03-17 15:07] LABS: CHOL/HDL RATIO 2.9 (0.00-4.99); CHOLESTEROL 122 MG/DL (0-200); HDL CHOLESTEROL 42 MG/DL (35-60); LDL CHOLESTEROL 58 MG/DL (50-100); TRIGLYCERIDES 221 MG/DL (20-135)
--- NOTE | 2023-03-17 15:26 | NUR ---
RN ATTEMPTING TO GET 2ND IV SO PROTONIX CAN BE ADMIN. PT IS CURRENTLY GETTING BLOOD TRANSFUSION.
[2023-03-17] MEDS ORDERED: DAPA10TA PO (15:57)
[2023-03-17] MEDS ORDERED: FENO145T25 PO (15:57)
[2023-03-17] MEDS ORDERED: AMIO100T4 PO (15:57)
[2023-03-17 16:07] VITALS: BP 178/68
--- NOTE | 2023-03-17 16:40 | NUR ---
PT C/O LEFT SIDED CP 11/26. RN REQ REPEAT EKG AND WILL NOTIFY MICA GUTIERRES.
[2023-03-17] MEDS ORDERED: acetaminophen 325mg tablet PO ONE (16:50)
[2023-03-17] MEDS ORDERED: diphenhydrAMINE 50 mg/ml inj IV ONE (16:50)
[2023-03-17 17:04] VITALS: BP 187/80
--- NOTE | 2023-03-17 17:45 | NUR ---
Received patient to room 3014A. Patient alert and oriented in no apparent acute distress. Oriented patient to room and call light. Call light placed within patient's reach. Bed low and locked. Denies chest pain, does c/o of restless legs. Vitals signs checked Bp 190/63, hr 65, 98.8, 20, 96% RA. Will notify MD of blood pressure.
[2023-03-17] MEDS: DEXTROSE 15 GM of carb/4 tabs (each vial/BOTTLE has 4 tablets) PO PRN (17:53)
[2023-03-17] MEDS: normal saline 1000ml 1,000 ML IV SCH (18:01)
--- NOTE | 2023-03-17 18:12 | NUR ---
Message: [id number]- Eun Griffin- pt BP 190/63 Hr 65. patient states normally takes BP meds but has not taken any today. Pt at first denies chest pain but now c/o stabbing chest pain 11/26 but then immediately stated "it went away." - Mar [phone].
--- NOTE | 2023-03-17 18:12 | NUR ---
Pt BG was 66. Glucose tablets given to patient per protocol. BG then 84 after treatment. While speaking to patient and setting up IV fluids patient c/o chest pain 11/26. Stated it was stabbing and did not radiate. Patient then said it was like the previous episode prior to transferring to floor, "it comes and goes." and immediately stated "it went away." Dr. Quinones notified.
[2023-03-17 18:16] VITALS: BP 190/63
--- NOTE | 2023-03-17 18:41 | NUR ---
Message: [id number]- GOMESGILBERT- BP WAS 190/63. Pt normally on bp meds but has not taken any. Also did c/o chest pain 2/ but states no longer having chest pain. Resting wthi eyes closed at this time- Mar [id number]
--- NOTE | 2023-03-17 18:50 | NUR ---
Problems reprioritized. Patient report given, questions answered & plan of care reviewed with LILY Garcia.
[2023-03-17] MEDS ORDERED: PEG 3350/Na sulf,bicarb,Cl/KCl oral sol 4 liter bottle PO ONE (19:00)
[2023-03-17] MEDS: K and/or MAG REPLACEMENT MC SCH (20:00)
[2023-03-17] MEDS ORDERED: docusate sod 100mg capsule PO SCH (20:00)
[2023-03-17 20:12] LABS: HEMATOCRIT 24.9 % (35.0-45.0); HEMOGLOBIN 8.1 g/dl (12.0-16.0); MEAN CORPUSCULAR HEMOGLOBIN 28.9 PG (27.0-31.0); MEAN CORPUSCULAR HGB CONC 32.4 g/dL (33.0-36.5); MEAN CORPUSCULAR VOLUME 89.2 FL (78-98); MEAN PLATELET VOLUME 10.8 FL (7.4-10.4); PLATELET COUNT 242 X10'3 (140-440); RED BLOOD COUNT 2.79 X10'6 (4.20-5.60); WHITE BLOOD COUNT 10.8 X10'3 (4.5-11.0)
--- NOTE | 2023-03-17 20:32 | NUR ---
H/H 8.1/24.9. Hold off on 2nd unit of PRBC, while rechecking Hemogram as ordered.
[2023-03-17] MEDS: insulin glargine (Lantus) pen - multi-dose SQ SCH (21:00)
[2023-03-17] MEDS ORDERED: furosemide 40mg tablet PO PRN (21:25)
[2023-03-17] MEDS: traZODone 50mg tablet PO SCH (21:37)
[2023-03-17] MEDS: pantoprazole 40MG/NS 100ML BAG 100 ML IV SCH (21:41)
[2023-03-17 22:00] VITALS: BP 167/59
[2023-03-18] VITALS (14 sets, daily range): BP systolic 122–216; BP diastolic 46–80
[2023-03-18] MEDS: normal saline 1000ml 1,000 ML IV SCH ×2 (00:05→07:45)
[2023-03-18] MEDS: traZODone 50mg tablet PO SCH ×2 (00:11→21:25)
[2023-03-18] MEDS: hydrALAZINE 20mg/ml inj. IV PRN ×2 (00:19→17:01)
--- NOTE | 2023-03-18 02:30 | NUR ---
Pt has clear stool after drinking half Golyetly.
[2023-03-18 03:02] LABS: BASOPHILS # (AUTO) 0.1 X10'3 (0-0.2); BASOPHILS % (AUTO) 0.9 % (0-1); EOSINOPHILS # (AUTO) 0.2 X10'3 (0-0.9); EOSINOPHILS % (AUTO) 1.6 % (0-6); HEMATOCRIT 25.8 % (35.0-45.0); HEMOGLOBIN 8.3 g/dl (12.0-16.0); LYMPHOCYTES # (AUTO) 2.3 X10'3 (1.1-4.8); MEAN CORPUSCULAR HEMOGLOBIN 28.4 PG (27.0-31.0); MEAN CORPUSCULAR HGB CONC 32.1 g/dL (33.0-36.5); MEAN CORPUSCULAR VOLUME 88.6 FL (78-98); MEAN PLATELET VOLUME 10.5 FL (7.4-10.4); MONOCYTES # (AUTO) 0.8 X10'3 (0-0.9); MONOCYTES % (AUTO) 6.6 % (2-12); NEUTROPHILS # (AUTO) 8.5 X10'3 (1.8-7.7); NEUTROPHILS % (AUTO) 71.9 % (42-75); PLATELET COUNT 269 X10'3 (140-440); RED BLOOD COUNT 2.92 X10'6 (4.20-5.60); RED CELL DISTRIBUTION WIDTH 15.1 % (11.5-14.5); WHITE BLOOD COUNT 11.9 X10'3 (4.5-11.0)
[2023-03-18] MEDS: HYDROcodone/acetaminophen 10/325mg tab PO PRN ×2 (03:02→21:25)
[2023-03-18 03:21] LABS: ALANINE AMINOTRANSFERASE 17 U/L (12-78); ALBUMIN 2.9 G/DL (3.4-5.0); ALBUMIN/GLOBULIN RATIO 0.9 (1.1-1.5); ALKALINE PHOSPHATASE 36 IU/L (46-116); ANION GAP 7 (8-16); ASPARTATE AMINO TRANSFERASE 19 U/L (10-37); BILIRUBIN,TOTAL 0.6 MG/DL (0.1-1.0); BLOOD UREA NITROGEN 20 MG/DL (7-18); BUN/CREATININE RATIO 10.9 (10.0-20.0); CHLORIDE 106 MMOL/L (99-107); CREATININE 1.83 MG/DL (0.40-0.90); GLUCOSE 64 MG/DL (70-104); PHOSPHORUS 3.8 MG/DL (2.3-4.5); POTASSIUM 3.7 MMOL/L (3.5-5.1); SODIUM 140 MMOL/L (135-145); TOTAL CARBON DIOXIDE 27.2 MMOL/L (24-32); TOTAL PROTEIN 6.2 G/DL (6.4-8.2); eGFR 28 ML/MIN
--- NOTE | 2023-03-18 06:20 | NUR ---
Patient in room PCU 3014. I have received report from LILY Garcia and had the opportunity to ask questions and assume patient care.
--- NOTE | 2023-03-18 06:28 | NUR ---
Problems reprioritized. Patient report given, questions answered & plan of care reviewed with Luiza BAUTISTA. Addendum: 03/18/23 at 0628 by Radha Hale RN Amended: Links added.
[2023-03-18] MEDS: K and/or MAG REPLACEMENT MC SCH ×2 (07:55→19:14)
[2023-03-18 08:18] LABS: HEMATOCRIT 26.9 % (35.0-45.0); MEAN CORPUSCULAR HEMOGLOBIN 29.4 PG (27.0-31.0); MEAN CORPUSCULAR HGB CONC 33.2 g/dL (33.0-36.5); MEAN CORPUSCULAR VOLUME 88.4 FL (78-98); MEAN PLATELET VOLUME 10.2 FL (7.4-10.4); PLATELET COUNT 278 X10'3 (140-440); RED BLOOD COUNT 3.05 X10'6 (4.20-5.60); RED CELL DISTRIBUTION WIDTH 15.4 % (11.5-14.5)
[2023-03-18] MEDS ORDERED: docusate sod 100mg capsule PO PRN (10:10)
[2023-03-18] MEDS: levoTHYROXINE 75mcg tablet PO SCH (10:11)
[2023-03-18] MEDS: digoxin 125mcg (0.125mg) tablet PO SCH (10:11)
[2023-03-18] MEDS: fenofibrate 145mg tablet PO SCH (10:11)
[2023-03-18] MEDS: multivitamins, therapeutics tablet PO SCH (10:11)
[2023-03-18] MEDS: lisinopril 20mg tablet PO SCH (10:12)
[2023-03-18] MEDS: carvedilol 6.25mg tablet PO SCH ×2 (10:12→19:29)
[2023-03-18] MEDS: pantoprazole 40MG/NS 100ML BAG 100 ML IV SCH ×2 (10:12→19:30)
[2023-03-18] MEDS: DEXTROSE 15 GM of carb/4 tabs (each vial/BOTTLE has 4 tablets) PO PRN (10:24)
[2023-03-18] MEDS: fluticasone nasal spray 16GM bottle NS SCH (10:51)
[2023-03-18] MEDS ORDERED: MIDAZolam 1 MG/ML 5ML VIAL ONE (12:12)
[2023-03-18] MEDS ORDERED: LIDOcaine Viscous 15ml cup ONE (12:12)
[2023-03-18] MEDS ORDERED: fentaNYL/PF 50MCG/1 ML 2ML syringe ONE (12:12)
--- NOTE | 2023-03-18 14:11 | NUR ---
Per EMR pt with T2DM, well controlled with A1c 7.1%. Pt out of room at attempted visit. Written DM education with RD contact information left at patient's bedside. Pt currently NPO, with episodes of hypoglycemia during admit. Per RN patient's diet likely to be advanced upon return to room given no more active bleeding though if it isn't she will d/w regarding adding D5. Will continue to follow. Addendum: 03/18/23 at [address] Amended: Links added.
--- NOTE | 2023-03-18 18:30 | NUR ---
Received report from primary care nurse Luiza RN. Patient is awake and alert on room air. In no apparent distress. Sitting at the side of her bed. Denies needs at this time. Cleared meal tray. Call light and items of frequent use within reach. Will continue to monitor for changes.
--- NOTE | 2023-03-18 18:40 | NUR ---
Problems reprioritized. Patient report given, questions answered & plan of care reviewed with LILY Garcia.
--- NOTE | 2023-03-18 20:07 | NUR ---
Patient reporting improvements in her vision however it is not back to normal yet. Addendum: 03/18/23 at 2010 by Cherie Boland RN Amended: Links added.
[2023-03-18] MEDS: insulin glargine (Lantus) pen - multi-dose SQ SCH (21:00)
[2023-03-18] MEDS: duloxetine 30mg CAPSULE.DR PO SCH (21:24)
[2023-03-18] MEDS: atorvastatin 20mg tablet PO SCH (21:24)
[2023-03-18] MEDS: amiodarone 100mg tablet PO SCH (21:25)
[2023-03-19 02:00] VITALS: BP 149/56
[2023-03-19 06:00] VITALS: BP_SYST 127; BP_SYST 152; BP_DIAS 50; BP_DIAS 79
--- NOTE | 2023-03-19 06:14 | NUR ---
Reported off to Janine BAUTISTA. Patient is awake and alert on room air in no apparent distress. Call light and items of frequent use within reach. Addendum: 03/19/23 at 0616 by Cherie Boland RN Reported off to Luiza BAUTISTA. Patient is awake and alert on room air in no apparent distress. Call light and items of frequent use within reach.
--- NOTE | 2023-03-19 06:20 | NUR ---
Patient in room PCU 3014. I have received report from LILY Crespo & Radha RN and had the opportunity to ask questions and assume patient care.
[2023-03-19 06:35] LABS: BASOPHILS # (AUTO) 0.1 X10'3 (0-0.2); BASOPHILS % (AUTO) 0.9 % (0-1); EOSINOPHILS # (AUTO) 0.3 X10'3 (0-0.9); EOSINOPHILS % (AUTO) 3.2 % (0-6); HEMATOCRIT 25.9 % (35.0-45.0); HEMOGLOBIN 8.5 g/dl (12.0-16.0); LYMPHOCYTES # (AUTO) 1.7 X10'3 (1.1-4.8); LYMPHOCYTES % (AUTO) 19.1 % (21-51); MEAN CORPUSCULAR HEMOGLOBIN 29.2 PG (27.0-31.0); MEAN CORPUSCULAR HGB CONC 32.7 g/dL (33.0-36.5); MEAN CORPUSCULAR VOLUME 89.1 FL (78-98); MONOCYTES # (AUTO) 0.6 X10'3 (0-0.9); MONOCYTES % (AUTO) 6.6 % (2-12); NEUTROPHILS # (AUTO) 6.3 X10'3 (1.8-7.7); NEUTROPHILS % (AUTO) 70.2 % (42-75); PLATELET COUNT 261 X10'3 (140-440); RED CELL DISTRIBUTION WIDTH 15.7 % (11.5-14.5); WHITE BLOOD COUNT 8.9 X10'3 (4.5-11.0)
[2023-03-19 06:50] LABS: ALANINE AMINOTRANSFERASE 19 U/L (12-78); ALBUMIN 2.6 G/DL (3.4-5.0); ALBUMIN/GLOBULIN RATIO 0.7 (1.1-1.5); ALKALINE PHOSPHATASE 37 IU/L (46-116); ANION GAP 6 (8-16); ASPARTATE AMINO TRANSFERASE 17 U/L (10-37); BILIRUBIN,TOTAL 0.5 MG/DL (0.1-1.0); BLOOD UREA NITROGEN 18 MG/DL (7-18); BUN/CREATININE RATIO 9.4 (10.0-20.0); CALCIUM 8.2 MG/DL (8.5-10.1); CHLORIDE 104 MMOL/L (99-107); CREATININE 1.92 MG/DL (0.40-0.90); GLUCOSE 131 MG/DL (70-104); MAGNESIUM 2.1 MG/DL (1.5-2.4); PHOSPHORUS 4.1 MG/DL (2.3-4.5); POTASSIUM 4.1 MMOL/L (3.5-5.1); SODIUM 137 MMOL/L (135-145); TOTAL CARBON DIOXIDE 26.9 MMOL/L (24-32); TOTAL PROTEIN 6.2 G/DL (6.4-8.2); eGFR 27 ML/MIN
[2023-03-19] MEDS: K and/or MAG REPLACEMENT MC SCH ×2 (08:00→20:00)
[2023-03-19] MEDS: levoTHYROXINE 75mcg tablet PO SCH (09:57)
[2023-03-19] MEDS: multivitamins, therapeutics tablet PO SCH (09:58)
[2023-03-19] MEDS: fenofibrate 145mg tablet PO SCH (09:58)
[2023-03-19] MEDS: lisinopril 20mg tablet PO SCH (09:58)
[2023-03-19] MEDS: carvedilol 6.25mg tablet PO SCH ×2 (09:58→21:38)
[2023-03-19] MEDS: digoxin 125mcg (0.125mg) tablet PO SCH (09:59)
[2023-03-19] MEDS: fluticasone nasal spray 16GM bottle NS SCH (10:00)
[2023-03-19 11:00] VITALS: BP 170/67
[2023-03-19] MEDS: hydrALAZINE 20mg/ml inj. IV PRN (11:03)
[2023-03-19] MEDS ORDERED: ondansetron 4mg rapidly disintigrating tab PO PRN (13:17)
[2023-03-19 15:00] VITALS: BP 163/54
[2023-03-19] MEDS: amLODIPine 5mg tablet PO SCH (16:46)
[2023-03-19] MEDS: NUT.TX.GLUC.INTOLER,LAC-FR,SOY (GLUCERNA) 237 ML PO SCH (17:44)
[2023-03-19 18:00] VITALS: BP 166/55
[2023-03-19] MEDS: insulin glargine (Lantus) pen - multi-dose SQ SCH (20:44)
[2023-03-19] MEDS: traZODone 50mg tablet PO SCH (21:35)
[2023-03-19] MEDS: atorvastatin 20mg tablet PO SCH (21:38)
[2023-03-19] MEDS: pantoprazole 40mg Tablet.DR PO SCH (21:38)
[2023-03-19] MEDS: duloxetine 30mg CAPSULE.DR PO SCH (21:38)
[2023-03-19] MEDS: amiodarone 100mg tablet PO SCH (21:38)
[2023-03-19] MEDS: HYDROcodone/acetaminophen 10/325mg tab PO PRN (21:39)
[2023-03-19 22:00] VITALS: BP 163/53
[2023-03-20 02:00] VITALS: BP 134/50
[2023-03-20 06:11] LABS: BASOPHILS # (AUTO) 0.1 X10'3 (0-0.2); BASOPHILS % (AUTO) 0.7 % (0-1); EOSINOPHILS # (AUTO) 0.2 X10'3 (0-0.9); EOSINOPHILS % (AUTO) 2.2 % (0-6); HEMATOCRIT 24.2 % (35.0-45.0); HEMOGLOBIN 7.9 g/dl (12.0-16.0); LYMPHOCYTES # (AUTO) 1.6 X10'3 (1.1-4.8); LYMPHOCYTES % (AUTO) 18.2 % (21-51); MEAN CORPUSCULAR HEMOGLOBIN 28.8 PG (27.0-31.0); MEAN CORPUSCULAR HGB CONC 32.6 g/dL (33.0-36.5); MEAN CORPUSCULAR VOLUME 88.3 FL (78-98); MEAN PLATELET VOLUME 9.9 FL (7.4-10.4); MONOCYTES # (AUTO) 0.6 X10'3 (0-0.9); MONOCYTES % (AUTO) 6.6 % (2-12); NEUTROPHILS # (AUTO) 6.4 X10'3 (1.8-7.7); NEUTROPHILS % (AUTO) 72.3 % (42-75); PLATELET COUNT 271 X10'3 (140-440); RED BLOOD COUNT 2.74 X10'6 (4.20-5.60); RED CELL DISTRIBUTION WIDTH 15.3 % (11.5-14.5); WHITE BLOOD COUNT 8.9 X10'3 (4.5-11.0)
[2023-03-20 06:19] LABS: ALANINE AMINOTRANSFERASE 17 U/L (12-78); ALBUMIN 2.5 G/DL (3.4-5.0); ALBUMIN/GLOBULIN RATIO 0.8 (1.1-1.5); ALKALINE PHOSPHATASE 38 IU/L (46-116); ANION GAP 6 (8-16); ASPARTATE AMINO TRANSFERASE 14 U/L (10-37); BILIRUBIN,TOTAL 0.4 MG/DL (0.1-1.0); BLOOD UREA NITROGEN 22 MG/DL (7-18); BUN/CREATININE RATIO 11.3 (10.0-20.0); CALCIUM 8.3 MG/DL (8.5-10.1); CHLORIDE 104 MMOL/L (99-107); CREATININE 1.94 MG/DL (0.40-0.90); GLUCOSE 153 MG/DL (70-104); PHOSPHORUS 4.3 MG/DL (2.3-4.5); SODIUM 138 MMOL/L (135-145); TOTAL CARBON DIOXIDE 27.6 MMOL/L (24-32); TOTAL PROTEIN 5.7 G/DL (6.4-8.2); eGFR 26 ML/MIN
--- NOTE | 2023-03-20 06:20 | NUR ---
Problems reprioritized. Patient report given, questions answered & plan of care reviewed with LILY Anglin.
[2023-03-20 07:00] VITALS: BP 135/50
[2023-03-20] MEDS ORDERED: levoTHYROXINE 25mcg tablet PO SCH (07:00)
--- NOTE | 2023-03-20 07:18 | NUR ---
Patient in room PCU 3014A. I have received report from LILY OTERO and had the opportunity to ask questions and assume patient care.
[2023-03-20] MEDS: multivitamins, therapeutics tablet PO SCH (08:58)
[2023-03-20] MEDS: pantoprazole 40mg Tablet.DR PO SCH (08:58)
[2023-03-20] MEDS: fenofibrate 145mg tablet PO SCH (08:59)
[2023-03-20] MEDS: amLODIPine 5mg tablet PO SCH (08:59)
[2023-03-20] MEDS: lisinopril 20mg tablet PO SCH (09:00)
[2023-03-20] MEDS: carvedilol 6.25mg tablet PO SCH (09:03)
[2023-03-20] MEDS: digoxin 125mcg (0.125mg) tablet PO SCH (09:03)
[2023-03-20] MEDS: fluticasone nasal spray 16GM bottle NS SCH (09:03)
[2023-03-20] MEDS: NUT.TX.GLUC.INTOLER,LAC-FR,SOY (GLUCERNA) 237 ML PO SCH (09:04)
[2023-03-20] MEDS: K and/or MAG REPLACEMENT MC SCH (09:05)
[2023-03-20 12:00] VITALS: BP 142/53
[2023-03-20] MEDS ORDERED: LEVO25TA7 PO (12:56)
[2023-03-20] MEDS ORDERED: NOR5T PO (12:56)
[2023-03-20] MEDS ORDERED: PANT40TA54 PO (12:56)
[2023-03-20] MEDS ORDERED: FLUT16SP NS (12:56)
--- NOTE | 2023-03-20 15:33 | NUR ---
PATIENT STABLE AND APPROPRIATE FOR DISCHARGE, IV AND TELE REMOVED, EDUCATION GIVEN, NEW MEDS E-SCRIPTED TO PREFERRED PHARMACY, ALL BELONGINGS SENT WITH PATIENT, PATIENT TAKEN TO LOBBY BY WHEELCHAIR WHERE CAB, WHICH WAS PAID FOR BY HOSPITAL, WILL TAKE PATIENT HOME
== END 2023-03-20 15:23 | disposition home or self-care (01) | DRG 241 ==
LOC: ER 12:07 → ED HOLD 14:09 → PCU 3S 17:47
PROVIDERS: ADMIT Family Medicine; ATTEND Family Medicine
PROC: 30233N1 Transfusion of Nonautologous Red Blood Cells into Peripheral Vein, Percutaneous Approach (ICD-10-PCS; principal; 2023-03-17)
PROC: 0DB98ZX Excision of Duodenum, Via Natural or Artificial Opening Endoscopic, Diagnostic (ICD-10-PCS; 2023-03-18)
PROC: 0DB78ZX Excision of Stomach, Pylorus, Via Natural or Artificial Opening Endoscopic, Diagnostic (ICD-10-PCS; 2023-03-18)
PROC: 0DBL8ZX Excision of Transverse Colon, Via Natural or Artificial Opening Endoscopic, Diagnostic (ICD-10-PCS; 2023-03-18)
DX: K29.70 Gastritis, unspecified, without bleeding (principal); E11.22 Type 2 diabetes mellitus with diabetic chronic kidney disease; I13.0 Hypertensive heart and chronic kidney disease with heart failure and stage 1 through stage 4 chronic kidney disease, or unspecified chronic kidney disease; I50.9 Heart failure, unspecified; D62 Acute posthemorrhagic anemia; D12.3 Benign neoplasm of transverse colon; E03.9 Hypothyroidism, unspecified; K57.30 Diverticulosis of large intestine without perforation or abscess without bleeding; K92.1 Melena; K64.8 Other hemorrhoids; F41.9 Anxiety disorder, unspecified; I16.0 Hypertensive urgency; I48.91 Unspecified atrial fibrillation; R19.00 Intra-abdominal and pelvic swelling, mass and lump, unspecified site; N18.32 Chronic kidney disease, stage 3b; Z79.01 Long term (current) use of anticoagulants; Z87.19 Personal history of other diseases of the digestive system; Z87.891 Personal history of nicotine dependence; Z88.2 Allergy status to sulfonamides
CPT/HCPCS: 36415; 36430; 43239; 45385; 71045; 74176; 80053; 80061; 80162; 81001; 82948; 83036; 83735; 84100; 84439; 84443; 84484; 85008; 85025; 85027; 86885; 86900; 86901; 86920; 87081; 87088; 99152; 99153; 99285; A4620; A6258; C1889; C9113; G0378; J0360; J1200; J1815; J2250; J3010; J7030; J7040; P9016